=== PATIENT | male | born 1940 | race Caucasian/White ===

== ENCOUNTER → 2018-01-29 07:39 | Outpatient (CLI) | payer MEDICARE, BC, SELFPAY ==
[2018-01-29 08:21] LABS: Add Manual Diff / Slide Review NO; Basophils Percent Auto 0.9 % (0-2); Eosinophils Percent Auto 1.2 % (2-4); Hematocrit 47.6 % (41-53); Hemoglobin 15.9 g/dL (13.5-17.5); Lymphocytes Percent Auto 16.5 % (25-40); Mean Corpuscular HGB Conc 33.4 % (30-36); Mean Corpuscular Hemoglobin 32.2 PG (26-34); Mean Corpuscular Volume 96.4 fL (80-100); Monocytes Percent Auto 10.9 % (3-14); Neutrophils Absolute Auto 4000 /uL (3000-5900); Neutrophils Percent Auto 70.5 % (50-75); Platelet Count 231 X10^3/uL (150-400); Red Blood Cell Count 4.94 X10^6/uL (4.5-5.9); Red Cell Distribution Width 12.8 % (11.6-14.8); White Blood Cell Count 5.6 X10^3/uL (4.5-11.0)
[2018-01-29 08:48] LABS: Alanine Aminotransferase 32 IU/L (21-72); Albumin 4.2 g/dL (3.5-5.0); Albumin Globulin Ratio 1.5 (1.0-2.8); Alkaline Phosphatase 59 U/L (38-126); Aspartate Aminotransferase 25 IU/L (17-59); Bilirubin Total 0.5 mg/dL (0.2-1.3); Blood Urea Nitrogen 27 mg/dL (9-20); Calcium 9.5 mg/dL (8.4-10.2); Carbon Dioxide 27 mmol/L (22-32); Chloride 104 mmol/L (98-107); Cholesterol 210 mg/dL (140-199); Estimated Glomerular Filt Rate > 60.0 mL/min (>60); Globulin 2.8 g/dL (1.7-4.1); Glucose 94 mg/dL (80-110); HDL Cholesterol 60 mg/dL (40-60); HEMOLYSIS < 15 (0-50); LDL Cholesterol Calculated 135 mg/dL (<100); Potassium 4.5 mmol/L (3.4-5.1); Sodium 143 mmol/L (137-145); Triglycerides 74 mg/dL (35-150)
== END ==
PROVIDERS: Visit Provider Internal Medicine
DX: I10 Essential (primary) hypertension (principal); M15.0 Primary generalized (osteo)arthritis
CPT/HCPCS: 36415; 80053; 80061; 84153; 85025

== ENCOUNTER → 2018-02-19 09:44 | Outpatient (CLI) | payer MEDICARE, BC, SELFPAY ==
--- NOTE | 2018-02-19 | DI.US.S_ITS ---
PROCEDURE: US ABD AORTA ANEURYSM SCREEN INDICATIONS: SCREENING TECHNIQUE: Real time scanning was performed of the aorta and iliac arteries, with image documentation. COMPARISON: None. FINDINGS: Aorta: Proximal aortic not well-seen. Mid-aorta measures 1.7 cm. Distal aortic diameter is 1.7 cm. Iliac arteries: Right common iliac artery measures 1.2 cm. Left common iliac artery measures 1.4 cm. IMPRESSION: Proximal aorta not well-seen otherwise no aortic aneurysm. Dictated by: Wade Larry [facility] Interpreted: Bruna García MD on 02/19/2018 at 10:55 Approved by: Bruna García MD, PhD on 02/19/2018 at 10:59
== END ==
PROVIDERS: PCP Internal Medicine; Visit Provider Internal Medicine
DX: Z13.6 Encounter for screening for cardiovascular disorders (principal)
CPT/HCPCS: 76706

== ENCOUNTER → 2018-03-25 08:00 | Outpatient (CLI) | payer MEDICARE, BC, SELFPAY ==
[2018-03-25 09:28] LABS: Alanine Aminotransferase 39 IU/L (21-72); Aspartate Aminotransferase 26 IU/L (17-59); Cholesterol 161 mg/dL (140-199); HDL Cholesterol 58 mg/dL (40-60); LDL Cholesterol Calculated 89 mg/dL (<100); Triglycerides 68 mg/dL (35-150)
== END ==
PROVIDERS: PCP Internal Medicine; Visit Provider Internal Medicine
DX: E78.00 Pure hypercholesterolemia, unspecified (principal)
CPT/HCPCS: 36415; 80061; 84450; 84460

== ENCOUNTER → 2019-04-02 07:48 | Outpatient (CLI) | payer MEDICARE, OTHER, SELFPAY ==
[2019-04-02 08:46] LABS: Alanine Aminotransferase 27 IU/L (<50); Albumin 4.4 g/dL (3.5-5.0); Albumin Globulin Ratio 1.4 (1.0-2.8); Alkaline Phosphatase 70 U/L (38-126); Aspartate Aminotransferase 29 IU/L (17-59); BUN Creatinine Ratio 24.4 (6-22); Bilirubin Total 0.8 mg/dL (0.2-1.3); Blood Urea Nitrogen 22 mg/dL (9-20); Calcium 9.2 mg/dL (8.4-10.2); Carbon Dioxide 28 mmol/L (22-32); Chloride 101 mmol/L (98-107); Cholesterol 157 mg/dL (140-199); Estimated Glomerular Filt Rate > 60.0 mL/min (>60); Globulin 3.1 g/dL (1.7-4.1); Glucose 105 mg/dL (80-110); HDL Cholesterol 43 mg/dL (40-60); HEMOLYSIS < 15 (0-50); LDL Cholesterol Calculated 98 mg/dL (<100); Potassium 3.9 mmol/L (3.4-5.1); Sodium 138 mmol/L (137-145); Total Protein 7.5 g/dL (6.3-8.2); Triglycerides 78 mg/dL (35-150)
== END ==
PROVIDERS: PCP Internal Medicine; Visit Provider Internal Medicine
DX: I10 Essential (primary) hypertension (principal); M15.0 Primary generalized (osteo)arthritis; E78.00 Pure hypercholesterolemia, unspecified
CPT/HCPCS: 36415; 80053; 80061

== ENCOUNTER 2019-04-28 08:37 | Day surgery (SDC) | payer MEDICARE, OTHER, SELFPAY ==
--- NOTE | 2019-04-28 | PATH_ITS ---
[facility] Accession Number: [id number] . 01 Material submitted: . PART A: colon - ASCENDING COLON BIOPSY PART B: hepatic flexure - HEPATIC FLEXURE BIOPSY PART C: rectum - RECTAL POLYPS . 01 Clinical history: . 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 02 Diagnosis: A. Ascending Colon, Biopsy: Consistent with submucosal lipoma. Negative for serrated lesion, dysplasia or malignancy. . B. Hepatic Flexure, Biopsy: Tubular adenoma. . C. Rectal Polyps, Biopsies: Fragments of hyperplastic polyp. [id number] 04/29/2019 0915 Local . 02 Electronically signed: . Corby Fox MD, PhD, Pathologist NPI- [id number] . 01 Gross description: . Part A: ASCENDING COLON BIOPSY: Received in formalin are 2 fragment(s) of huggins, soft tissue measuring 0.1 x 0.1 x 0.1 cm to 0.3 x 0.2 x 0.2 cm submitted entirely in 1 cassette(s) Part B: HEPATIC FLEXURE BIOPSY: Received in formalin are 2 fragment(s) of huggins, soft tissue measuring 0.1 x 0.1 x 0.1 cm to 0.2 x 0.2 x 0.2 cm submitted entirely in 1 cassette(s) Part C: RECTAL POLYPS: Received in formalin are 3 fragment(s) of huggins, soft tissue measuring 0.1 x 0.1 x 0.1 cm to 0.4 x 0.3 x 0.2 cm submitted entirely in 1 cassette(s) /[facility] [place] 1827 Local . 02 Pathologist provided ICD-10: D12.2, D12.3, K62.1 . 02 CPT . 799862, 408777, 250608 Performed at: 01 [facility] [address] [place] [address], [place], [place] [id number] MD Jean-Pierre Green MD Phone: [phone] Performed at: [address] [facility] [address] [place], [place] [id number] MD Dayna Rey MD Phone: [phone]
[2019-04-28] MEDS: SODIUM CHLORIDE 0.9% 1,000 ML 200 ML IV (08:50)
[2019-04-28 09:00] VITALS: BP 146/85; PULSE 90; RESP 20; TEMP 36.2; O2SAT 95; BMI 29.0
--- NOTE | 2019-04-28 10:01 | PM.HP.1 ---
History of Present Illness History of Present Illness Date Patient Seen: 04/28/19 Time Patient Seen: 10:01 Chief complaint: [id number] Narrative: The patient is a gentleman here for a colonoscopy. He has a history of polyps. No family history of colon cancer. Last exam was 5 years ago. Patient History Medical History (Updated 04/28/19 @ 10:02 by Chun Rivera MD) Hypertension (Acute) Surgical History (Updated 04/28/19 @ 10:03 by Chun Rivera MD) History of back surgery (Acute) Status post appendectomy (Acute) Family & Social History Social History: household members spouse Tobacco & Substance use: Smoking Status Former smoker alcohol intake frequency a few times a week Substance Use Type does not use Meds Home Medications and Allergies Home Medications Medication Instructions Recorded Confirmed Type atorvastatin 10 mg PO BEDTIME 04/28/19 04/28/19 History benazepril 20 mg PO DAILY 04/28/19 04/28/19 History hydrochlorothiazide 25 mg PO DAILY 04/28/19 04/28/19 History Allergies Allergy/AdvReac Type Severity Reaction Status Date / Time Penicillins Allergy Rash Verified 04/28/19 08:50 Review of Systems Review of Systems Narrative: No heart or breathing issues no black or bloody bowel movements Exam Vital Signs (past 8 hours): - 04/28/19 09:00 Temperature 97.2 F L Pulse Rate 90 Respiratory Rate 20 Blood Pressure 146/85 H Pulse Oximetry 95 Oxygen Delivery Method Room Air Narrative Exam Narrative: Pleasant cooperative patient no apparent distress. Lungs are clear to auscultation. No rales or rhonchi. Heart regular rate and rhythm no murmur gallop. Abdomen is soft nontender without mass. No obvious hernias. Patient is alert and oriented x3. Assessment & Plan Assessment & Plan narrative: The patient for a screening colonoscopy. I have discussed the procedure with them. Risks of bleeding, perforation which would necessitate major operation, failure to find remove all lesions, the potential tattoo were all discussed. All questions were answered. They wished to proceed.
--- NOTE | 2019-04-28 10:04 | PM.PREOP ---
Pre-operative Note Interval Note History & Physical reviewed/Exam performed by Physician: Yes Changes to H&P: No ASA Class (for procedural sedation): II
--- NOTE | 2019-04-28 10:38 | PM.OP.ENDO ---
Operative Date/Time/Diagnoses Date of procedure: 04/28/19 Time of procedure: 10:38 Pre-op diagnosis: Personal history of polyps. Last exam 5 years ago. Post-op diagnosis: same (Polyps. Scattered diverticuli. Probable lipoma of the ascending colon.) Procedure & Clinicians Study performed: Colonoscopy with cold biopsy Same procedure as scheduled: Yes Indications: Screening Surgeon: Chun Rivera Procedure Notes SCOAP/Timeout: Perform Procedure in detail: The patient was placed in the left lateral decubitus position and underwent IV sedation directed by the surgeon consisting of fentanyl and Versed. Digital exam was unremarkable. Prostate was small.. The scope was inserted and advanced through the rectum into the sigmoid, descending, transverse, and ascending colon. Diverticuli were noted scattered in the colon. The cecum was reached identified by the ileocecal valve . The scope was gradually brought out. Small Polyps were found at[the hepatic flexure in in the rectum. There was also a polypoid lesion in the ascending colon that had the appearance of a lipoma. I biopsied the surface which exposed the deeper tissue which looked fatty. This was biopsied also. The whole lesion was not removed due to the clinical appearance, that is, it appeared to be a benign lipoma]. The scope ultimately was retroflexed in the rectum. The appearance was normal except for 2 small lesions which were biopsied and removed.. The scope was removed and the patient tolerated the procedure well. The prep was very good. Scope withdrawal time: 10.5 minutes total Sedation minutes: 22 Findings: diverticulosis and polyp Specimen(s): other (Polyps) Complications: none Post-procedure Recommendations: Colonscopy in 5 years Follow up: as needed Disposition: PACU
[2019-04-28 10:41] VITALS: BP 111/80; PULSE 72; RESP 16; TEMP 36.9
[2019-04-28] MEDS: fentaNYL 250 MCG/5 ML INJ IV (10:42)
[2019-04-28] MEDS: MIDAZOLAM 5 MG/ML VIAL IV (10:42)
[2019-04-28] MEDS: MIDAZOLAM 2 MG/2 ML VIAL IV (10:43)
--- NOTE | 2019-04-28 10:44 | SUR.PHASEI ---
hearing aides and glasses returned and wearing both in recovery.
[2019-04-28 10:47] VITALS: BP 114/82; PULSE 77; RESP 11; O2SAT 94
[2019-04-28 10:52] VITALS: BP 115/76; PULSE 70; RESP 18; O2SAT 96
[2019-04-28 11:13] VITALS: BP 114/74; PULSE 63; RESP 16; TEMP 36.6; O2SAT 95
== END 2019-04-28 11:25 | disposition home or self-care (01) ==
PROVIDERS: PCP Internal Medicine; Referring Provider Internal Medicine; Visit Provider Specialist
PROC: 0DJD8ZZ Inspection of Lower Intestinal Tract, Via Natural or Artificial Opening Endoscopic (ICD-10-PCS; CPT 45378; principal; 2019-04-28 09:45)
DX: Z12.11 Encounter for screening for malignant neoplasm of colon (principal); Z86.010 Personal history of colon polyps; K57.30 Diverticulosis of large intestine without perforation or abscess without bleeding; K62.1 Rectal polyp; D12.3 Benign neoplasm of transverse colon
CPT/HCPCS: 45380; 99152; J2250; J3010

== ENCOUNTER → 2019-05-06 18:16 | Outpatient (ROUT) | payer MEDICARE, OTHER, SELFPAY ==
[2019-05-06 18:20] LABS: Bacteria Urine None Seen
[2019-05-06 18:45] LABS: Add Manual Diff / Slide Review NO; Basophils Absolute Auto 0 /uL (0-100); Basophils Percent Auto 0.3 % (0-2); Eosinophils Absolute Auto 0 /uL (0-450); Eosinophils Percent Auto 0.1 % (2-4); Hematocrit 41.4 % (41-53); Hemoglobin 14.2 g/dL (13.5-17.5); Lymphocytes Absolute Auto 300 /uL (1100-4500); Mean Corpuscular HGB Conc 34.2 % (30-36); Mean Corpuscular Hemoglobin 32.6 PG (26-34); Mean Corpuscular Volume 95.2 fL (80-100); Monocytes Absolute Auto 2100 /uL (0-900); Monocytes Percent Auto 13.1 % (3-14); Neutrophils Absolute Auto 13300 /uL (1500-7000); Neutrophils Percent Auto 84.5 % (50-75); Platelet Count 247 X10^3/uL (150-400); Red Blood Cell Count 4.35 X10^6/uL (4.5-5.9); White Blood Cell Count 15.7 X10^3/uL (4.5-11.0)
[2019-05-06 18:50] LABS: Appearance Urine UA SL CLOUDY; Bilirubin Urine UA 1+ (NEGATIVE); Color Urine UA ORANGE; Glucose Urine UA NEGATIVE (Negative); Ketones Urine UA 1+ (NEGATIVE); Leukocyte Esterase Urine UA NEGATIVE (NEGATIVE); Nitrite Urine UA NEGATIVE (Negative); Occult Blood Urine UA 2+ (Negative); Protein Urine UA 2+ (Negative); Urobilinogen Urine UA 0.2 E.U./dL (0.2)
[2019-05-06 18:52] LABS: Ictotest Urine Negative (Negative)
[2019-05-06 18:53] LABS: BUN Creatinine Ratio 24.3 (6-22); Blood Urea Nitrogen 34 mg/dL (9-20); Calcium 8.6 mg/dL (8.4-10.2); Carbon Dioxide 22 mmol/L (22-32); Chloride 99 mmol/L (98-107); Estimated Glomerular Filt Rate 49.3 mL/min (>60); Glucose 137 mg/dL (80-110); HEMOLYSIS < 15 (0-50); Potassium 3.7 mmol/L (3.4-5.1); Sodium 135 mmol/L (137-145)
[2019-05-06 18:57] LABS: Culture Indicated Urine Cult Not Indicated; Hyaline Casts Urine 1-5/LPF; Mucus Urine 3+ (Negative); RBC Urine 1-5/HPF (0-5/HPF); Squamous Epithelial Cell Urine 1-5 /HPF (0-5/HPF); WBC Urine 0-1/HPF (0-5/HPF)
== END ==
PROVIDERS: PCP Internal Medicine; Visit Provider Internal Medicine
DX: R50.9 Fever, unspecified (principal)
CPT/HCPCS: 80048; 81001; 85025

== ENCOUNTER → 2019-05-07 10:27 | Outpatient (CLI) | payer MEDICARE, OTHER, SELFPAY ==
--- NOTE | 2019-05-07 10:50 | DI.RAD.S_ITS ---
PROCEDURE: XR CHEST 2V INDICATIONS: UNDEFINED ILLNESS TECHNIQUE: 2 views of the chest were acquired. COMPARISON: None. FINDINGS: Surgical changes and devices: None. Lungs and pleura: Low lung volumes with scattered subsegmental atelectasis/scarring. No pleural effusions or pneumothorax. Mediastinum: Mediastinal contours are normal. Heart size is normal. Bones and chest wall: No suspicious bony abnormalities. Soft tissues appear unremarkable. IMPRESSION: Low lung volumes with scattered subsegmental atelectasis/scarring. Dictated by: Kahlil Moreno M.D. on 05/07/2019 at 14:22 Approved by: Kahlil Moreno M.D. on 05/07/2019 at 14:23
[2019-05-07 12:35] LABS: Alanine Aminotransferase 56 IU/L (<50); Albumin 3.4 g/dL (3.5-5.0); Albumin Globulin Ratio 1.1 (1.0-2.8); Alkaline Phosphatase 181 U/L (38-126); Aspartate Aminotransferase 49 IU/L (17-59); Bilirubin Total 0.6 mg/dL (0.2-1.3); Blood Urea Nitrogen 36 mg/dL (9-20); Calcium 8.7 mg/dL (8.4-10.2); Carbon Dioxide 25 mmol/L (22-32); Chloride 98 mmol/L (98-107); Estimated Glomerular Filt Rate 45.5 mL/min (>60); Globulin 3.2 g/dL (1.7-4.1); Glucose 105 mg/dL (80-110); HEMOLYSIS < 15 (0-50); Potassium 3.7 mmol/L (3.4-5.1); Sodium 137 mmol/L (137-145); Total Protein 6.6 g/dL (6.3-8.2)
== END ==
PROVIDERS: PCP Internal Medicine; Referring Provider Internal Medicine; Visit Provider Internal Medicine
DX: R50.9 Fever, unspecified (principal); N17.9 Acute kidney failure, unspecified
CPT/HCPCS: 36415; 71046; 80053; 87040

== ENCOUNTER → 2019-05-15 07:49 | Outpatient (CLI) | payer MEDICARE, OTHER, SELFPAY ==
[2019-05-15 08:49] LABS: Alanine Aminotransferase 41 IU/L (<50); Albumin 3.7 g/dL (3.5-5.0); Albumin Globulin Ratio 1.1 (1.0-2.8); Alkaline Phosphatase 132 U/L (38-126); Aspartate Aminotransferase 30 IU/L (17-59); Bilirubin Total 0.5 mg/dL (0.2-1.3); Bilirubin Unconjugated 0.3 mg/dL (0.0-1.1); Globulin 3.5 g/dL (1.7-4.1); Total Protein 7.2 g/dL (6.3-8.2)
[2019-05-15 08:52] LABS: HEMOLYSIS 52 (0-50)
== END ==
PROVIDERS: PCP Internal Medicine; Referring Provider Internal Medicine; Visit Provider Internal Medicine
DX: R74.8 Abnormal levels of other serum enzymes (principal)
CPT/HCPCS: 36415; 80076

== ENCOUNTER 2019-05-22 14:04 | Emergency (ER) | payer MEDICARE, OTHER, SELFPAY ==
[2019-05-22] VITALS (11 sets, daily range): BP systolic 90–127; BP diastolic 57–78; PULSE 87–116; RESP 15–26; TEMP 37.9–38.1; O2SAT 88–98
--- NOTE | 2019-05-22 14:20 | DI.RAD.S_ITS ---
PROCEDURE: XR CHEST 1V INDICATIONS: suspected sepsis TECHNIQUE: One view of the chest was acquired. COMPARISON: [facility], CR, XR CHEST 2V, 05/07/2019, 11:02. FINDINGS: Surgical changes and devices: None. Lungs and pleura: Lungs appear clear. No pleural effusions or pneumothorax. Mediastinum: Mediastinal contours appear normal. Heart size is normal. Bones and chest wall: No suspicious bony lesions. Overlying soft tissues appear unremarkable. IMPRESSION: No acute cardiopulmonary abnormality. Dictated by: Tyler Tinsley M.D. on 05/22/2019 at 14:41 Approved by: Tyler Tinsley M.D. on 05/22/2019 at 14:42
[2019-05-22] MEDS: ACETAMINOPHEN 325 MG TABLET 650 MG PO ×2 (14:59→21:29)
[2019-05-22] MEDS: ONDANSETRON 4 MG/2 ML INJ IV (14:59)
[2019-05-22] MEDS: SODIUM CHLORIDE 0.9% 1,000 ML 1000 ML IV (15:00)
[2019-05-22 15:09] LABS: Add Manual Diff / Slide Review NO; Basophils Absolute Auto 100 /uL (0-100); Basophils Percent Auto 0.3 % (0-2); Eosinophils Absolute Auto 0 /uL (0-450); Hematocrit 43.2 % (41-53); Hemoglobin 14.6 g/dL (13.5-17.5); INR 1.3 (0.9-1.3); Lymphocytes Absolute Auto 500 /uL (1100-4500); Lymphocytes Percent Auto 3.2 % (25-40); Mean Corpuscular HGB Conc 33.7 % (30-36); Mean Corpuscular Hemoglobin 31.6 PG (26-34); Mean Corpuscular Volume 93.6 fL (80-100); Monocytes Absolute Auto 1100 /uL (0-900); Monocytes Percent Auto 7.4 % (3-14); Neutrophils Absolute Auto 13400 /uL (1500-7000); Neutrophils Percent Auto 89.1 % (50-75); Platelet Count 280 X10^3/uL (150-400); Prothrombin Time 14.6 SECONDS (10.1-12.7); Red Blood Cell Count 4.62 X10^6/uL (4.5-5.9); Red Cell Distribution Width 12.8 % (11.6-14.8)
[2019-05-22 15:11] LABS: PTT Partial Thromboplastin Tim 30 SECONDS (26.4-36.2)
[2019-05-22 15:13] LABS: Alanine Aminotransferase 365 IU/L (<50); Albumin 4.1 g/dL (3.5-5.0); Albumin Globulin Ratio 1.1 (1.0-2.8); Alkaline Phosphatase 322 U/L (38-126); Aspartate Aminotransferase 297 IU/L (17-59); BUN Creatinine Ratio 18.4 (6-22); Bilirubin Total 6.6 mg/dL (0.2-1.3); Blood Urea Nitrogen 21 mg/dL (9-20); Calcium 9.7 mg/dL (8.4-10.2); Carbon Dioxide 21 mmol/L (22-32); Chloride 100 mmol/L (98-107); Estimated Glomerular Filt Rate > 60.0 mL/min (>60); Globulin 3.9 g/dL (1.7-4.1); Glucose 133 mg/dL (80-110); HEMOLYSIS < 15 (0-50); Lipase 80 U/L (23-300); Potassium 4.2 mmol/L (3.4-5.1); Sodium 132 mmol/L (137-145)
[2019-05-22 15:13] LABS: Influenza A - CEPHEID Flu A NEGATIVE (NEGATIVE); Influenza B - CEPHEID Flu B NEGATIVE (NEGATIVE)
[2019-05-22 15:15] LABS: Lactate (Lactic Acid) 1.4 mmol/L (0.7-2.1)
[2019-05-22 15:29] LABS: Procalcitonin 0.66 ng/mL (<0.5)
[2019-05-22 15:29] LABS: Creatine Kinase 46 U/L (55-170)
[2019-05-22 15:45] LABS: Bacteria Urine None Seen; RBC Urine None Seen (0-5/HPF); WBC Urine None Seen (0-5/HPF)
[2019-05-22 15:46] LABS: Appearance Urine UA CLEAR; Glucose Urine UA NEGATIVE (Negative); Ketones Urine UA TRACE (NEGATIVE); Leukocyte Esterase Urine UA NEGATIVE (NEGATIVE); Nitrite Urine UA NEGATIVE (Negative); Occult Blood Urine UA TRACE-LYSED (Negative); Specific Gravity Urine UA 1.015 (1.000-1.035); pH Urine UA 7.5 (4.5-8.0)
[2019-05-22 15:51] LABS: Color Urine UA Orange
[2019-05-22 15:53] LABS: Culture Indicated Urine Cult Not Indicated; Mucus Urine 1+ (Negative); Squamous Epithelial Cell Urine 5-10 /HPF (0-5/HPF)
[2019-05-22] MEDS: VANCOMYCIN 1,000 MG/200 ML PIGGYBACK 200 MG IV (16:02)
[2019-05-22] MEDS: levoFLOXacin 750 MG/150 ML PIGGYBACK 100 MG IV (16:02)
--- NOTE | 2019-05-22 16:15 | DI.CT.S_ITS ---
PROCEDURE: CT ABDOMEN PELVIS W CON INDICATIONS: Fever, sepsis, after colonoscopy, abnormal Liver functions TECHNIQUE: After the administration of intravenous contrast, 5 mm thick sections acquired from the diaphragm to the symphysis. 5 mm coronal and sagittal reformats were acquired. For radiation dose reduction, the following was used: automated exposure control, adjustment of mA and/or kV according to patient size. COMPARISON: None. FINDINGS: Image quality: Excellent. ABDOMEN: Lung bases: Lung bases are clear. Heart size is normal. Solid organs: There are multiple prominent liver cysts. No suspicious solid lesions. Liver is normal in size and enhancement. Gallbladder is markedly abnormal in appearance. It is quite dilated, with gallbladder wall thickening, and inflammatory change around the gallbladder. Gallstones are present. Findings may potentially represent acute cholecystitis. However, gallbladder carcinoma is not excluded. Cannot exclude extension into the surrounding hepatic parenchyma and surrounding fat. Biliary system is non dilated. Pancreas enhances normally. Spleen is normal in size and enhancement. Probable small left adrenal adenoma. Kidneys demonstrate normal size and enhancement, without hydronephrosis. Peritoneum and bowel: Bowel loops demonstrate normal wall thickness and caliber. No free fluid or air. Nodes and vessels: No retroperitoneal or mesenteric adenopathy by size criteria. Aorta and inferior vena cava are normal in size. Miscellaneous: No ventral hernias. PELVIS: Genitourinary: Bladder wall thickness is normal. Miscellaneous: Right inguinal hernia containing fat. No inguinal adenopathy. Bones: No suspicious bony lesions. No vertebral body compression fractures. IMPRESSION: Markedly abnormal appearance of gallbladder, possibly representing acute cholecystitis. However, cannot exclude a gallbladder carcinoma with possible infiltration into the surrounding liver and surrounding fat. Dictated by: Dixon Mccollum M.D. on 05/22/2019 at 17:01 Approved by: Dixon Mccollum M.D. on 05/22/2019 at 17:06
--- NOTE | 2019-05-22 18:20 | ED.SEPSIS ---
HPI - Sepsis General Chief Complaint: Fever Mode of arrival: Ambulatory Source: patient Limitations: no limitations Evaluation Sepsis Screen: Possible Sepsis Risk Sepsis Infection Criteria Present: Documented Infection Narrative: The patient is a 78-year-old male who presents to the emergency department with a fever and cough. He however states that on April 28 he had a colonoscopy and polyp removed. The question is is whether not he had a perforation. No CT scan at that time was performed. He did fine for 2 days but then afterwards he has had a fever since then. He has also developed excessive fatigue weakness no energy and has been excessively sleepy. He has had cold sweats and intermittent shaking rigors. They look for a kidney infection but did not reveal any and he was not treated. He denies a history of being immunosuppressed for any reason. He has had no cancer lymphoma or leukemia. He denies a history of hepatitis, tuberculosis, or HIV. He denies being a diabetic having a previous heart CO, history of COPD or asthma. He does admit to a history of hypertension. He denies smoking cigarettes but does drink alcohol. He does not use any drugs. He has had fever chills and sweats as previously described. He denies any headache fall or injury. He has had no sinus congestion nasal drainage or sore throat. He has had a cough that has been nonproductive of any significant sputum associated with shortness of breath. He has been excessively diaphoretic at times. He denies any chest pain palpitations dizziness or passing out. He has had no significant abdominal pain but has had nausea with intermittent vomiting. He denies any diarrhea melena hematochezia. He has had no urinary symptoms. Review of Systems Review of Systems Narrative: All review of systems were negative except for those mentioned in the history of present illness. Patient History Medical History Hypertension (Acute) Surgical History History of back surgery (Acute) Status post appendectomy (Acute) Social History household members: spouse Smoking Status: Former smoker Smoking Status: Former smoker alcohol intake frequency: a few times a week Substance Use Type: does not use Exam Narrative Exam Narrative: PHYSICAL EXAM: CONSTITUTIONAL: Awake, Alert, Oriented, Coherent, Cooperative in NAD. He has been very pleasant. Does not appear toxic or ill. His skin has yellow-brown bronze appearance. His sclera appear icteric. HEAD: AT/NC EENT: PERRL, FROM of eyes, no discharge. No epistaxis or nasal drainage Oral mucosa is moist and pink, posterior pharynx is without erythema or exudate. NECK: Supple, no obvious JVD, Trachea is midline without stridor, no palpable LN or masses. SPINE: No gross deformity, no palpable tenderness of the cervical, thoracic, lumbar or sacral spine. No CVA tenderness. THORAX: No deformity, retractions, chest wall tenderness. LUNGS: Clear with symmetrical breath sounds without respiratory distress HEART: Normal heart tones, regular rhythm cardiac without murmur. ABDOMEN: Soft, essentially nontender without any guarding rebound or rigidity. There was no palpable organomegaly or splenomegaly noted. EXTREMITIES: No edema, cyanosis, deformity or tenderness. SKIN: No rash, bruising, petechiae or purpura. NEURO: Awake, alert, oriented, conversive, cranial nerves II-XII are symmetrical and normal, moves all 4 extremities and is ambulatory Initial Vital Signs Initial Vital Signs: Vital Signs Temperature 100.5 F H 05/22/19 14:15 Pulse Rate 116 H 05/22/19 14:15 Respiratory Rate 24 05/22/19 14:15 Blood Pressure 116/78 05/22/19 14:15 Pulse Oximetry 95 05/22/19 14:15 Course Course Course Narrative: 182 the patient's gallbladder is markedly abnormal in appearance. There is gallbladder wall thickening and inflammatory changes around the gallbladder. Gallstones are present. This represents acute cholecystitis. Gallbladder carcinoma is not excluded. Biliary system is not dilated. The patient's primary care physician is Dr. Bansal. The hospitalist cover an admit for Dr. Bansal. Dr. Reed has been paged to admit this patient. 183: I discussed the patient with Dr. jasmine ahn and he wanted me to consult and discussed the patient with General surgery. 184: I discussed the patient with Dr. almas wayne who states that he feels that the patient has ascending cholangitis with jaundice. The patient's bilirubin is 6.6 AST is 297 ALT is 365 alk-phos is 322. General surgery in the staff here has no ability to take care the patient with ascending cholangitis. The if the patient has a gallbladder tumor his bile duct will need to be stented and the patient needs an ERCP. The patient will need to be transferred. Report will be given to Dr. Faye. Orders Ordered: ED Orders 05/22/19 14:20 XR chest 1V Stat EKG-12 Lead Stat RT Consult Eval and Treat Now 05/22/19 14:21 Flu test [Influenza A & B (PCR)] Stat 05/22/19 14:53 Complete Blood Count AUTO DIFF Stat Comprehensive Metabolic Panel Stat Lactate (Lactic Acid) Stat Lipase Stat Partial Thromboplastin Time Stat Procalcitonin Stat Prothrombin Time INR Stat 05/22/19 14:57 CKMB Panel (CK + CKMB) Stat 05/22/19 15:07 Ictotest Urine Stat Urinalysis and Microscopic Stat 05/22/19 15:15 Blood Culture Stat 05/22/19 16:15 CT abdomen pelvis w con Stat Discontinued Medications Acetaminophen (Tylenol) 650 mg PO NOW ONE Stop: 05/22/19 14:31 Last Admin: 05/22/19 14:59 Dose: 650 mg Documented by: MERCEDES Diltiazem HCl (Cardizem Cd) 120 mg PO NOW ONE Stop: 05/22/19 18:29 Sodium Chloride (Normal Saline 0.9%) 1,000 mls @ 1,000 mls/hr IV BOLUS ONE Stop: 05/22/19 15:19 Last Infusion: 05/22/19 16:23 Dose: 0 mls/hr Documented by: Admin: 05/22/19 15:00 Dose: 1,000 mls/hr Documented by: MERCEDES Vancomycin HCl (Vancomycin) 1,000 mg in 200 mls @ 200 mls/hr IV NOW ONE Stop: 05/22/19 16:37 Last Admin: 05/22/19 16:02 Dose: 200 mls/hr Documented by: ERIC Levofloxacin (Levaquin) 750 mg in 150 mls @ 100 mls/hr IV NOW ONE Stop: 05/22/19 17:13 Last Infusion: 05/22/19 18:00 Dose: 0 mls/hr Documented by: Admin: 05/22/19 16:02 Dose: 100 mls/hr Documented by: ERIC Ondansetron HCl (Zofran) 4 mg IV NOW ONE Stop: 05/22/19 14:21 Last Admin: 05/22/19 14:59 Dose: 4 mg Documented by: MERCEDES Vital Signs Vital signs: Vital Signs - 8 hr 05/22/19 14:15 05/22/19 14:59 05/22/19 17:10 Temperature 100.5 F H 100.5 F H Pulse Rate 116 H 100 H Respiratory Rate 24 Blood Pressure 116/78 Blood Pressure [Right Arm] 112/59 L Pulse Oximetry 95 94 05/22/19 18:00 05/22/19 18:44 Temperature Pulse Rate 92 H 92 H Respiratory Rate 17 16 Blood Pressure Blood Pressure [Right Arm] 107/64 114/65 Pulse Oximetry 94 92 MDM - Sepsis Medical Records Attestation: I reviewed the patient's medical records. Lab Data Attestation: I reviewed the patient's lab results. Result diagrams: 05/22/19 14:53 05/22/19 14:53 Labs: Lab Results 05/22/19 05/22/19 05/22/19 Range/Units 14:21 14:53 14:53 WBC 15.0 H (4.5-11.0) X10^3/uL RBC 4.62 (4.5-5.9) X10^6/uL Hgb 14.6 (13.5-17.5) g/dL Hct 43.2 (41-53) % MCV 93.6 (80-100) fL MCH 31.6 (26-34) PG MCHC 33.7 (30-36) % RDW 12.8 (11.6-14.8) % Plt Count 280 (150-400) X10^3/uL Neut % (Auto) 89.1 H (50-75) % Lymph % (Auto) 3.2 L (25-40) % [place] % (Auto) 7.4 (3-14) % Eos % (Auto) 0.0 L (2-4) % Baso % (Auto) 0.3 (0-2) % Neut # (Auto) 30108 H (9616-1372) /uL Lymph # (Auto) 500 L (2239-8343) /uL [place] # (Auto) 1100 H (0-900) /uL Eos # (Auto) 0 (0-450) /uL Baso # (Auto) 100 (0-100) /uL PT 14.6 H (10.1-12.7) SECONDS INR 1.3 (0.9-1.3) APTT 30 (26.4-36.2) SECONDS Sodium (137-145) mmol/L Potassium (3.4-5.1) mmol/L Chloride (98-107) mmol/L Carbon Dioxide (22-32) mmol/L BUN (9-20) mg/dL Creatinine (0.66-1.25) mg/dL Estimated GFR (>60) mL/min BUN/Creatinine Ratio (6-22) Glucose (80-110) mg/dL Lactate (0.7-2.1) mmol/L Calcium (8.4-10.2) mg/dL Total Bilirubin (0.2-1.3) mg/dL AST (17-59) IU/L ALT (<50) IU/L Alkaline Phosphatase (38-126) U/L Total Creatine Kinase (55-170) U/L CK-MB (CK-2) CK-MB (CK-2) Rel Index Total Protein (6.3-8.2) g/dL Albumin (3.5-5.0) g/dL Globulin (1.7-4.1) g/dL Albumin/Globulin Ratio (1.0-2.8) Lipase (23-300) U/L Procalcitonin (<0.5) ng/mL Urine Color Urine Appearance Urine pH (4.5-8.0) Ur Specific [place] (1.000-1.035) Urine Protein Urine Glucose (UA) (Negative) g/dL Urine Ketones (NEGATIVE) Urine Occult Blood (Negative) Urine Nitrate (Negative) Urine Bilirubin Ur Bilirubin Confirm Urine Urobilinogen (0.2) E.U./dL Ur Leukocyte Esterase (NEGATIVE) Urine RBC (0-5/HPF) Urine WBC (0-5/HPF) Ur Squamous Epith Cells (0-5/HPF) Urine Bacteria (None) Urine Mucus (Negative) Ur Culture Indicated? Influenza A (RT-PCR) Flu a negative (NEGATIVE) Influenza B (RT-PCR) Flu b negative (NEGATIVE) 05/22/19 05/22/19 05/22/19 Range/Units 14:53 14:53 14:53 WBC (4.5-11.0) X10^3/uL RBC (4.5-5.9) X10^6/uL Hgb (13.5-17.5) g/dL Hct (41-53) % MCV (80-100) fL MCH (26-34) PG MCHC (30-36) % RDW (11.6-14.8) % Plt Count (150-400) X10^3/uL Neut % (Auto) (50-75) % Lymph % (Auto) (25-40) % [place] % (Auto) (3-14) % Eos % (Auto) (2-4) % Baso % (Auto) (0-2) % Neut # (Auto) (3524-8237) /uL Lymph # (Auto) (4063-4521) /uL [place] # (Auto) (0-900) /uL Eos # (Auto) (0-450) /uL Baso # (Auto) (0-100) /uL PT (10.1-12.7) SECONDS INR (0.9-1.3) APTT (26.4-36.2) SECONDS Sodium 132 L (137-145) mmol/L Potassium 4.2 (3.4-5.1) mmol/L Chloride 100 (98-107) mmol/L Carbon Dioxide 21 L (22-32) mmol/L BUN 21 H (9-20) mg/dL Creatinine 1.14 (0.66-1.25) mg/dL Estimated GFR > 60.0 (>60) mL/min BUN/Creatinine Ratio 18.4 (6-22) Glucose 133 H (80-110) mg/dL Lactate 1.4 (0.7-2.1) mmol/L Calcium 9.7 (8.4-10.2) mg/dL Total Bilirubin 6.6 H (0.2-1.3) mg/dL AST 297 H (17-59) IU/L ALT 365 H (<50) IU/L Alkaline Phosphatase 322 H D (38-126) U/L Total Creatine Kinase (55-170) U/L CK-MB (CK-2) CK-MB (CK-2) Rel Index Total Protein 8.0 (6.3-8.2) g/dL Albumin 4.1 (3.5-5.0) g/dL Globulin 3.9 (1.7-4.1) g/dL Albumin/Globulin Ratio 1.1 (1.0-2.8) Lipase 80 (23-300) U/L Procalcitonin 0.66 H (<0.5) ng/mL Urine Color Urine Appearance Urine pH (4.5-8.0) Ur Specific [place] (1.000-1.035) Urine Protein Urine Glucose (UA) (Negative) g/dL Urine Ketones (NEGATIVE) Urine Occult Blood (Negative) Urine Nitrate (Negative) Urine Bilirubin Ur Bilirubin Confirm Urine Urobilinogen (0.2) E.U./dL Ur Leukocyte Esterase (NEGATIVE) Urine RBC (0-5/HPF) Urine WBC (0-5/HPF) Ur Squamous Epith Cells (0-5/HPF) Urine Bacteria (None) Urine Mucus (Negative) Ur Culture Indicated? Influenza A (RT-PCR) (NEGATIVE) Influenza B (RT-PCR) (NEGATIVE) 05/22/19 05/22/19 Range/Units 14:57 15:07 WBC (4.5-11.0) X10^3/uL RBC (4.5-5.9) X10^6/uL Hgb (13.5-17.5) g/dL Hct (41-53) % MCV (80-100) fL MCH (26-34) PG MCHC (30-36) % RDW (11.6-14.8) % Plt Count (150-400) X10^3/uL Neut % (Auto) (50-75) % Lymph % (Auto) (25-40) % [place] % (Auto) (3-14) % Eos % (Auto) (2-4) % Baso % (Auto) (0-2) % Neut # (Auto) (3168-3188) /uL Lymph # (Auto) (2266-7469) /uL [place] # (Auto) (0-900) /uL Eos # (Auto) (0-450) /uL Baso # (Auto) (0-100) /uL PT (10.1-12.7) SECONDS INR (0.9-1.3) APTT (26.4-36.2) SECONDS Sodium (137-145) mmol/L Potassium (3.4-5.1) mmol/L Chloride (98-107) mmol/L Carbon Dioxide (22-32) mmol/L BUN (9-20) mg/dL Creatinine (0.66-1.25) mg/dL Estimated GFR (>60) mL/min BUN/Creatinine Ratio (6-22) Glucose (80-110) mg/dL Lactate (0.7-2.1) mmol/L Calcium (8.4-10.2) mg/dL Total Bilirubin (0.2-1.3) mg/dL AST (17-59) IU/L ALT (<50) IU/L Alkaline Phosphatase (38-126) U/L Total Creatine Kinase 46 L (55-170) U/L CK-MB (CK-2) TNP CK-MB (CK-2) Rel Index TNP Total Protein (6.3-8.2) g/dL Albumin (3.5-5.0) g/dL Globulin (1.7-4.1) g/dL Albumin/Globulin Ratio (1.0-2.8) Lipase (23-300) U/L Procalcitonin (<0.5) ng/mL Urine Color [place] Urine Appearance Clear Urine pH 7.5 (4.5-8.0) Ur Specific [place] 1.015 (1.000-1.035) Urine Protein TNP Urine Glucose (UA) Negative (Negative) g/dL Urine Ketones Trace H (NEGATIVE) Urine Occult Blood Trace-lysed (Negative) Urine Nitrate Negative (Negative) Urine Bilirubin TNP Ur Bilirubin Confirm TNP Urine Urobilinogen 1.0 (0.2) E.U./dL Ur Leukocyte Esterase Negative (NEGATIVE) Urine RBC None seen (0-5/HPF) Urine WBC None seen (0-5/HPF) Ur Squamous Epith Cells 5-10 /hpf H (0-5/HPF) Urine Bacteria None seen (None) Urine Mucus 1+ H (Negative) Ur Culture Indicated? Cult not indicated Influenza A (RT-PCR) (NEGATIVE) Influenza B (RT-PCR) (NEGATIVE) Urine Dip Bedside Urine Glucose Negative Bedside Urine Bilirubin - Negative Bedside Urine Ketone - Negative Urine Specific [place] 1.005 Bedside Urine Occult Blood +/- Bedside Urine pH 7.5 Bedside Urine Protein - Negative Bedside Urine Urobilinogen - Negative Bedside Urine Nitrite - Negative Bedside Urine Leukocytes - Negative Esterase ECG Data Attestation: I personally reviewed and interpreted this ECG as follows: Interpretation: The patient's EKG obtained on May 21 at 17:4 5:52 a.m. revealed a ventricular rate of 98. Sinus rhythm with occasional premature atrial contractions. The intervals are normal. QTC is slightly prolonged at 467 millisecond. The patient has right axis deviation. The patient has flat T-waves in leads V1 and inverted T-waves in leads III and AVF. There is a flat T-wave in lead II. This is consistent with inferior ischemia of undetermined age. There are no other acute diagnostic ST segment changes. Discharge Plan Departure Patient Disposition: [facility] Clinical Impression: Tachypnea, Tachycardia, Jaundice, Cholangitis Sepsis Qualifiers: Sepsis type: sepsis due to unspecified organism Sepsis acute organ dysfunction status: unspecified Qualified Code(s): A41.9 - Sepsis, unspecified organism Leukocytosis Qualifiers: Leukocytosis type: bandemia Qualified Code(s): D72.825 - Bandemia Fever Qualifiers: Fever type: unspecified Qualified Code(s): R50.9 - Fever, unspecified Gallbladder calculus with acute cholecystitis Qualifiers: Biliary obstruction: without biliary obstruction Qualified Code(s): K80.00 - Calculus of gallbladder with acute cholecystitis without obstruction Prescriptions: No Action atorvastatin 10 mg Tablet 10 mg PO BEDTIME RF: 0 benazepril 20 mg Tablet 20 mg PO DAILY RF: 0 hydrochlorothiazide 25 mg tablet 25 mg PO DAILY RF: 0 Referrals: Ras Bansal MD [Primary Care Provider] -
[2019-05-22] MEDS: metroNIDAZOLE 500 MG/100 ML PIGGYBACK 100 MG IV (20:11)
[2019-05-22] MEDS: SODIUM CHLORIDE 0.9% 1,000 ML 125 ML IV (20:12)
--- NOTE | 2019-05-22 22:23 | PC.NURSE ---
Dr Faye removed pt from Isolation at this time, source of infection found.
== END 2019-05-23 00:30 | disposition short-term general hospital (02) ==
PROVIDERS: Emergency Medicine; Emergency Provider Emergency Medicine; PCP Internal Medicine
DX: R06.82 Tachypnea, not elsewhere classified (principal); R00.0 Tachycardia, unspecified; R17 Unspecified jaundice; K83.09 Other cholangitis; A41.9 Sepsis, unspecified organism; D72.825 Bandemia; R50.9 Fever, unspecified; K80.00 Calculus of gallbladder with acute cholecystitis without obstruction
CPT/HCPCS: 36415; 71045; 74177; 80053; 81001; 81003; 82550; 83605; 83690; 84145; 85025; 85610; 85730; 87040; 87502; 93005; 93010; 96361; 96365; 96367; 96368; 96375; 99285; J1956; J2405; Q9967

== ENCOUNTER → 2019-05-26 08:03 | Outpatient (CLI) | payer MEDICARE, OTHER, SELFPAY ==
[2019-05-26 09:51] LABS: Add Manual Diff / Slide Review NO; Basophils Absolute Auto 0 /uL (0-100); Basophils Percent Auto 0.7 % (0-2); Eosinophils Absolute Auto 0 /uL (0-450); Eosinophils Percent Auto 0.6 % (2-4); Hematocrit 41.8 % (41-53); Hemoglobin 13.9 g/dL (13.5-17.5); Lymphocytes Absolute Auto 900 /uL (1100-4500); Mean Corpuscular HGB Conc 33.3 % (30-36); Mean Corpuscular Hemoglobin 31.6 PG (26-34); Mean Corpuscular Volume 94.9 fL (80-100); Monocytes Absolute Auto 900 /uL (0-900); Monocytes Percent Auto 16.5 % (3-14); Neutrophils Absolute Auto 3600 /uL (1500-7000); Neutrophils Percent Auto 65.2 % (50-75); Platelet Count 272 X10^3/uL (150-400); Red Cell Distribution Width 12.8 % (11.6-14.8); White Blood Cell Count 5.6 X10^3/uL (4.5-11.0)
[2019-05-26 11:09] LABS: Alanine Aminotransferase 99 IU/L (<50); Albumin 3.4 g/dL (3.5-5.0); Alkaline Phosphatase 174 U/L (38-126); Aspartate Aminotransferase 44 IU/L (17-59); BUN Creatinine Ratio 23.9 (6-22); Bilirubin Total 1.2 mg/dL (0.2-1.3); Blood Urea Nitrogen 21 mg/dL (9-20); Calcium 8.9 mg/dL (8.4-10.2); Carbon Dioxide 22 mmol/L (22-32); Chloride 103 mmol/L (98-107); Estimated Glomerular Filt Rate > 60.0 mL/min (>60); Globulin 3.3 g/dL (1.7-4.1); Glucose 91 mg/dL (80-110); HEMOLYSIS < 15 (0-50); Potassium 4.5 mmol/L (3.4-5.1); Sodium 137 mmol/L (137-145); Total Protein 6.7 g/dL (6.3-8.2)
== END ==
PROVIDERS: PCP Internal Medicine; Referring Provider Internal Medicine; Visit Provider Internal Medicine
DX: I10 Essential (primary) hypertension (principal); E78.00 Pure hypercholesterolemia, unspecified
CPT/HCPCS: 36415; 80053; 85025

== ENCOUNTER → 2019-08-01 09:01 | Outpatient (CLI) | payer MEDICARE, OTHER, SELFPAY ==
[2019-08-02 09:30] LABS: COVID19 Sendout Not Detected (Not Detect)
== END ==
PROVIDERS: PCP Internal Medicine; Visit Provider Physician Assistant
DX: Z01.818 Encounter for other preprocedural examination (principal)
CPT/HCPCS: 87635

== ENCOUNTER → 2020-04-26 07:37 | Outpatient (CLI) | payer MEDICARE, OTHER, SELFPAY ==
[2020-04-26 08:08] LABS: Add Manual Diff / Slide Review NO; Basophils Absolute Auto 100 /uL (0-100); Eosinophils Absolute Auto 100 /uL (0-450); Eosinophils Percent Auto 1.1 % (2-4); Hematocrit 46.6 % (41-53); Hemoglobin 15.9 g/dL (13.5-17.5); Lymphocytes Absolute Auto 1300 /uL (1100-4500); Mean Corpuscular Hemoglobin 32.8 PG (26-34); Mean Corpuscular Volume 96.3 fL (80-100); Monocytes Absolute Auto 600 /uL (0-900); Monocytes Percent Auto 11.4 % (3-14); Neutrophils Absolute Auto 3500 /uL (1500-7000); Neutrophils Percent Auto 63.5 % (50-75); Platelet Count 210 X10^3/uL (150-400); Red Blood Cell Count 4.84 X10^6/uL (4.5-5.9); Red Cell Distribution Width 12.6 % (11.6-14.8); White Blood Cell Count 5.6 X10^3/uL (4.5-11.0)
[2020-04-26 08:43] LABS: Alanine Aminotransferase 29 IU/L (<50); Albumin Globulin Ratio 1.4 (1.0-2.8); Alkaline Phosphatase 68 U/L (38-126); Aspartate Aminotransferase 28 IU/L (17-59); BUN Creatinine Ratio 20.2 (6-22); Bilirubin Total 0.8 mg/dL (0.2-1.3); Blood Urea Nitrogen 19 mg/dL (9-20); Calcium 9.7 mg/dL (8.4-10.2); Carbon Dioxide 32 mmol/L (22-32); Chloride 101 mmol/L (98-107); Cholesterol 180 mg/dL (140-199); Estimated Glomerular Filt Rate > 60.0 mL/min (>60); Globulin 2.8 g/dL (1.7-4.1); Glucose 105 mg/dL (80-110); HDL Cholesterol 55 mg/dL (40-60); HEMOLYSIS < 15 (0-50); LDL Cholesterol Calculated 102 mg/dL (<100); Potassium 4.5 mmol/L (3.4-5.1); Sodium 136 mmol/L (137-145); Total Protein 6.8 g/dL (6.3-8.2); Triglycerides 113 mg/dL (35-150)
== END ==
PROVIDERS: PCP Internal Medicine; Referring Provider Internal Medicine; Visit Provider Internal Medicine
DX: I10 Essential (primary) hypertension (principal); M15.0 Primary generalized (osteo)arthritis; E66.9 Obesity, unspecified; E78.2 Mixed hyperlipidemia; Z12.5 Encounter for screening for malignant neoplasm of prostate
CPT/HCPCS: 36415; 80053; 80061; 85025; G0103

== ENCOUNTER → 2020-06-02 13:36 | Outpatient (CLI) | payer MEDICARE, OTHER, SELFPAY ==
--- NOTE | 2020-06-02 | DI.ECHO.S_ITS ---
[place] [facility]---------+ [facility] +---------+ : : [address] : : : : [id number] : : : : Phone: [phone] Echocardiogram Report + + :Name: NETO JOHNSTON Study Date: 06/02/2020 Height: 72 in : :[facility] ReadingLocation: Weight: 230 lb : : Gender: Male BSA: 2.3 m2 : :: 1940 Age: 79 yrs BP: 174/100 mmHg: :Reason For Study: HYPERTENSION : :Ordering Physician: MAGALI, : :MESFIN Performed By: Babs Gore : :Referring: MESFIN DE LOS SANTOS : + + Interpretation Summary The left ventricle is normal in size. The ejection fraction is estimated to be 55-60%. There is mild concentric left ventricular hypertrophy. The right ventricle is normal in size and function. No significant valvular pathology seen. The IVC is of normal diameter and collapses greater than 50% with a sniff. This suggests a low right atrial pressure of 3 mm Hg. There is aortic root sclerosis/calcification. Large liver cyst (9.1 x 8.3 cm) Procedure: A two-dimensional transthoracic echocardiogram with color flow and Doppler was performed. The study quality was technically adequate. There is no prior echocardiogram noted for this patient. The patient was in sinus rhythm with heart rates between 82-97 bpm during the exam. Left Ventricle: The left ventricle is normal in size. There is mild concentric left ventricular hypertrophy. There is no thrombus. The ejection fraction is estimated to be 55-60%. There are no focal wall motion abnormalities. Diastolic parameters suggest a relaxation abnormality of the left ventricle, consistent with probable normal filling pressures. Right Ventricle: The right ventricle is normal in size and function. Atria: The left atrial size is normal. Right atrial size is normal. There is no Doppler evidence for an interatrial shunt. Mitral Valve: The mitral valve leaflets are slightly calcified. There is trace mitral regurgitation. Aortic Valve: The aortic valve is trileaflet. The aortic valve opens well. The aortic valve is slightly calcified. There is no aortic valve stenosis. No aortic regurgitation is present. Tricuspid Valve: The tricuspid valve is normal in structure and function. There is trace tricuspid regurgitation. Pulmonary artery pressures cannot be estimated because of the lack of a measurable TR jet velocity but the IVC suggests a CVP of around 38 mmHg. Pulmonic Valve: The pulmonic valve leaflets are thin and pliable; valve motion is normal. There is trace pulmonic regurgitation. Great Vessels: The aortic root is normal size. There is aortic root sclerosis/calcification. The ascending aorta is at the upper limits of normal in size. The IVC is of normal diameter and collapses greater than 50% with a sniff. This suggests a low right atrial pressure of 3 mm Hg. Pericardium/ Pleura There is no pericardial effusion. There is no pleural effusion. MMode/2D Measurements & Calculations LVIDd: 5.5 cm LVOT diam: 2.1 cm LVIDs: 4.3 cm Ao root diam: 3.7 cm FS: 21.3 % asc Aorta Diam: 3.7 cm EPSS: 1.2 cm Ao Arch Diam (Prox Trans): 3.4 cm IVSd: 1.2 cm LVPWd: 1.4 cm LV nix. diameter/BSA (cm/m^2): 2.4 LV sys. diameter/BSA (cm/m^2): 1.9 LA A2 area: 26.2 cm2 RA long axis: 5.6 cm LA A4 area: 18.4 cm2 RA area: 16.1 cm2 LA length (vol): 5.8 cm RA vol: 39.4 ml LA vol: 70.2 ml RA : 17.4 ml/m2 LA vol index: 31.1 ml/m2 IVC diam: 1.3 cm RVD1 (basal): 3.5 cm TAPSE: 2.0 cm Doppler Measurements & Calculations Ao V2 max: 145.4 cm/sec LVOT Max Dennis: 117.7 cm/sec Ao V2 mean: 110.2 cm/sec LV V1 max P.5 mmHg Ao max P.5 mmHg LV V1 VTI: 25.7 cm Ao mean P.2 mmHg SUJATHA(I,D): 3.6 cm2 Ao V2 VTI: 25.6 cm SUJATHA(V,D): 2.9 cm2 sev ratio: 1.0 SUJATHA indexed to BSA (cm^2/m^2): 1.6 MV E max dennis: 77.3 cm/sec TR max dennis: 297.3 cm/sec MV A max dennis: 78.1 cm/sec TR max P.4 mmHg MV E/A: 0.99 PA V2 max: 96.1 cm/sec Med Peak E' Dennis: 9.0 cm/sec PA V2 mean: 65.5 cm/sec E/E' med: 8.6 PA mean P.9 mmHg Lat Peak E' Dennis: 10.4 cm/sec PA pr(Accel): 56.7 mmHg E/E' lat: 7.5 E/e' average: 8.0 MV dec time: 0.24 sec SV(LVOT): 91.4 ml Reading Physician:06:16 PM
== END ==
PROVIDERS: PCP Internal Medicine; Referring Provider Internal Medicine; Visit Provider Internal Medicine
DX: I10 Essential (primary) hypertension (principal); K76.89 Other specified diseases of liver; I70.0 Atherosclerosis of aorta
CPT/HCPCS: 93306

== ENCOUNTER → 2020-11-02 07:59 | Outpatient (CLI) | payer MEDICARE, OTHER, SELFPAY ==
--- NOTE | 2020-11-02 | DI.RAD.S_ITS ---
PROCEDURE: XR KNEE RT 3V INDICATIONS: Pain in right KNEE TECHNIQUE: 3 views of the knee were acquired. COMPARISON: None. FINDINGS: Bones: No fractures or dislocations. No suspicious bony lesions. Mild symmetric tricompartmental joint space narrowing at the right knee. Soft tissues: No joint effusion. No suspicious soft tissue calcifications. IMPRESSION: Mild tricompartmental joint space narrowing indicating mild osteoarthritis without trauma. Dictated by: Lito Cornejo M.D. on 11/02/2020 at 10:48 Approved by: Lito Cornejo M.D. on 11/02/2020 at 10:49
== END ==
PROVIDERS: PCP Internal Medicine; Referring Provider Internal Medicine; Visit Provider Internal Medicine
DX: M25.561 Pain in right knee (principal)
CPT/HCPCS: 73562

== ENCOUNTER → 2021-05-22 07:47 | Outpatient (CLI) | payer MEDICARE, OTHER, SELFPAY ==
[2021-05-22 09:03] LABS: Add Manual Diff / Slide Review NO; Basophils Absolute Auto 0 /uL (0-100); Basophils Percent Auto 0.8 % (0-2); Eosinophils Absolute Auto 100 /uL (0-450); Eosinophils Percent Auto 2.1 % (2-4); Hematocrit 45.5 % (41-53); Hemoglobin 15.8 g/dL (13.5-17.5); Lymphocytes Absolute Auto 1100 /uL (1100-4500); Lymphocytes Percent Auto 18.9 % (25-40); Mean Corpuscular HGB Conc 34.8 % (30-36); Mean Corpuscular Hemoglobin 33.2 PG (26-34); Mean Corpuscular Volume 95.6 fL (80-100); Monocytes Absolute Auto 600 /uL (0-900); Monocytes Percent Auto 11.1 % (3-14); Neutrophils Absolute Auto 3800 /uL (1500-7000); Neutrophils Percent Auto 67.1 % (50-75); Platelet Count 203 X10^3/uL (150-400); Red Blood Cell Count 4.76 X10^6/uL (4.5-5.9); White Blood Cell Count 5.7 X10^3/uL (4.5-11.0)
[2021-05-22 09:10] LABS: Hemoglobin A1C% w Est Avg Glu 5.9 % (4.0-6.0)
[2021-05-22 09:46] LABS: BUN Creatinine Ratio 32.6 (6-22); Blood Urea Nitrogen 29 mg/dL (9-20); Calcium 8.8 mg/dL (8.4-10.2); Carbon Dioxide 25 mmol/L (22-32); Chloride 105 mmol/L (98-107); Estimated Glomerular Filt Rate > 60.0 mL/min (>60); Glucose 99 mg/dL (80-110); HEMOLYSIS 145 (0-50); Sodium 138 mmol/L (137-145)
== END ==
PROVIDERS: PCP Internal Medicine; Referring Provider Orthopaedic Surgery; Visit Provider Orthopaedic Surgery
DX: Z01.812 Encounter for preprocedural laboratory examination (principal); Z01.818 Encounter for other preprocedural examination; R73.9 Hyperglycemia, unspecified
CPT/HCPCS: 36415; 80048; 83036; 85025; 93005; 93010

== ENCOUNTER → 2021-09-12 10:08 | Outpatient (CLI) | payer MEDICARE, OTHER, SELFPAY ==
[2021-09-12 11:22] LABS: COVID19 -Nasal RAPID Negative (Negative)
== END ==
PROVIDERS: PCP Internal Medicine; Visit Provider Surgery
DX: Z01.812 Encounter for preprocedural laboratory examination (principal); Z20.822 Contact with and (suspected) exposure to COVID-19
CPT/HCPCS: 87635; C9803

== ENCOUNTER 2021-09-13 07:46 | Day surgery (SDC) | payer MEDICARE, OTHER, SELFPAY ==
[2021-09-08 09:15] VITALS: BMI 33.2
[2021-09-13 08:01] VITALS: BMI 33.2
[2021-09-13 08:05] VITALS: BP 151/86; PULSE 84; RESP 22; TEMP 36.8; O2SAT 98
[2021-09-13] MEDS: LACTATED RINGERS 1,000 ML 100 ML IV (08:11)
--- NOTE | 2021-09-13 08:47 | PM.PREOP ---
Pre-operative Note Interval Note History & Physical reviewed/Exam performed by Physician: Yes Changes to H&P: No
[2021-09-13] MEDS: CLINDAMYCIN 900 MG/50 ML PIGGYBACK 50 MG IV (09:05)
[2021-09-13] MEDS: BUPIVACAINE 0.25% (PF) VIAL 30 ML INJ (09:25)
--- NOTE | 2021-09-13 09:29 | SUR.OPER ---
Supine on padded OR bed, head on pillow, arms secured on padded arm boards at <90 degrees abduction, legs uncrossed, safety belt at thigh, tape over blanket over lower legs.
--- NOTE | 2021-09-13 09:54 | PM.OP.1 ---
Operative Date/Time/Diagnoses Date of procedure: 09/13/21 Time of procedure: 09:55 Pre-op diagnosis: Umbilical hernia Post-op diagnosis: same Procedure & Clinicians Procedure: Open umbilical hernia repair with mesh Same procedure as scheduled: Yes Indications: Symptomatic umbilical hernia reducible. Surgeon: Franky Post Click Yes if Unassisted: Yes Anesthesia Type: General Operative Notes Findings: 1.5 cm fascial defect containing viable omentum Specimen(s): none sent Estimated Blood Loss (mL): 20 Procedure in detail: Patient was brought to the operating room placed supine on the table. Bilateral lower extremity compression devices were applied. General anesthesia was induced and they were intubated with an endotracheal tube. They received clindamycin prior to skin incision. They were prepped and draped in sterile fashion. A time-out was performed. A curvilinear incision was made inferior to the umbilicus. The subcutaneous tissues were divided. The umbilical hernia was identified and the hernia sac was dissected off the umbilical skin and circumferentially off of the fascia defect. The hernia sac was sharply opened and contained viable omentum. The omentum was reduced back into the abdomen. Using blunt dissection I carefully carefully freed the hernia sac from beneath the fascia defect in order to accomodate the mesh. The fascia defect was 1.5 cm in maximal diameter. A Bard Ventralex ST hernia patch 4 cm was inserted beneath the fascia defect in a sublay position. The mesh was anchored in multiple locations using Ethibond suture to the fascia and the fascial defect was closed over the mesh. The umbilical skin was tacked to the subcutaneous tissues and then the remainder of the subcutaneous tissues were reapproximated using 3 0 Vic[place],l skin closed with 4 0 Monocryl followed by the application of Dermabond and Steri-Strips. Sponge instrument count at the end of the operation was correct. Patient tolerated procedure well was extubated and transferred to postoperative care unit in stable condition. Complications: none Post-operative Condition: stable Disposition: same day surgery
[2021-09-13 10:02] VITALS: BP 140/86; PULSE 77; RESP 18; TEMP 36.2; O2SAT 96
[2021-09-13 10:07] VITALS: BP 135/83; PULSE 72; RESP 18; O2SAT 95
[2021-09-13 10:12] VITALS: BP 124/89; PULSE 71; RESP 18; O2SAT 94
[2021-09-13 10:17] VITALS: BP 116/85; PULSE 72; RESP 16; O2SAT 95
[2021-09-13 10:22] VITALS: BP 128/85; PULSE 69; RESP 15; O2SAT 94
--- NOTE | 2021-09-13 10:46 | SUR.PHASEII ---
Discharge instructions reviewed with patient and spouse, with time allowed for questions. Dressing C/D/I, pt denies any distress and ready to discharge home. Pt A&IOx4, dressed independently, transported via w/c to ER exit to meet spouse who will transport home.
== END 2021-09-13 10:48 | disposition home or self-care (01) ==
PROVIDERS: PCP Internal Medicine; Referring Provider Surgery; Visit Provider Surgery
PROC: (CPT 49585; principal; 2021-09-13 08:45)
DX: K42.9 Umbilical hernia without obstruction or gangrene (principal); I10 Essential (primary) hypertension
CPT/HCPCS: 49585; 00750; J2250; J2704; J3010

== ENCOUNTER → 2022-01-09 11:42 | Outpatient (CLI) | payer MEDICARE, OTHER, SELFPAY ==
[2022-01-09 13:14] LABS: COVID19 -Nasal RAPID Negative (Negative)
== END ==
PROVIDERS: PCP Internal Medicine; Visit Provider Surgery
DX: Z20.822 Contact with and (suspected) exposure to COVID-19 (principal); Z01.812 Encounter for preprocedural laboratory examination
CPT/HCPCS: 87635; C9803

== ENCOUNTER 2022-01-10 08:56 | Day surgery (SDC) | payer MEDICARE, OTHER, SELFPAY ==
[2022-01-05 10:23] VITALS: BMI 30.9
[2022-01-10] VITALS (7 sets, daily range): BP systolic 138–187; BP diastolic 87–104; PULSE 78–92; RESP 12–18; TEMP 36.3–37.1; O2SAT 92–97; BMI 34.4
[2022-01-10] MEDS: LACTATED RINGERS 1,000 ML 100 ML IV (09:18)
--- NOTE | 2022-01-10 09:48 | P.HP_ITS ---
History of Present Illness History of Present Illness Date Patient Seen: 01/10/22 Time Patient Seen: 09:49 Chief complaint: [facility] Narrative: 81M with a recurrent umbilical hernia here for elective open repair. Please refer to H&P 11/16/2021 for further detail. 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) Hx of cholecystectomy (04/2020) Hx of umbilical hernia repair (09/13/21) Status post appendectomy (10/2013) Family & Social History Social History: household members spouse Tobacco & Substance use: Tobacco type cigarettes,pipe Smoking Status Former smoker alcohol intake current alcohol intake frequency 0-2 drinks per day Substance Use Type does not use Meds Home Medications and Allergies Home Medications Medication Instructions Recorded Confirmed Type atorvastatin 10 mg tablet 10 mg PO BEDTIME 04/28/19 01/05/22 History benazepril 20 mg tablet 20 mg PO DAILY 04/28/19 01/05/22 History hydrochlorothiazide 25 mg tablet 25 mg PO DAILY 05/22/19 01/05/22 History acetaminophen 325 mg capsule 650 mg PO QID PRN pain #60 caps 09/13/21 01/05/22 Rx (Tylenol) ibuprofen 200 mg tablet 400 mg PO Q6H #60 tabs 09/13/21 01/05/22 Rx Allergies Allergy/AdvReac Type Severity Reaction Status Date / Time Penicillins Allergy Rash Verified 01/10/22 09:44 Exam Vital Signs (past 8 hours): - 01/10/22 09:35 Temperature 97.5 F L Pulse Rate 82 Respiratory Rate 18 Blood Pressure 187/104 H Pulse Oximetry 95 Oxygen Delivery Method Room Air Oxygen Delivery Method Room Air Narrative Exam Narrative: Gen-Adult man alert and oriented Abdomen soft reducible umbilical hernia Assessment & Plan Assessment and plan (1) Recurrent umbilical hernia: Status: Acute Assessment & Plan narrative: 81M with a recurrent umbilical hernia here for elective repair. Operative overview discussed. Risks including bleeding, infection, reoccurence, damage to surrounding structures discussed. Questions have been answered and he is in agr eement with this plan. Time Spent With Patient Critical Care time: I spent a total of [] minutes of critical care time on this patient's care today; this time is exclusive of procedural time.
--- NOTE | 2022-01-10 10:03 | PM.OP.1 ---
Operative Date/Time/Diagnoses Date of procedure: 01/10/22 Time of procedure: 10:03 Pre-op diagnosis: Recurrent umbilical hernia Post-op diagnosis: same Procedure & Clinicians Procedure: open repair of recurrent umbilical hernia Same procedure as scheduled: Yes Indications: recurrent umbilical hernia Surgeon: Franky Post Anesthesia Type: General Operative Notes Findings: 4 cm fascial defect containing omentum. The previous meshes is not adequately covering the fascial defect and is deformed Estimated Blood Loss (mL): 20 Procedure in detail: Patient was brought to the operating room placed supine on the table. Bilateral lower extremity compression devices were applied. General anesthesia was induced and they were intubated with an endotracheal tube. They received 2 g of Ancef prior to skin incision. They were prepped and draped in sterile fashion. A time-out was performed. A curvilinear incision was made inferior to the umbilicus. The subcutaneous tissues were divided. There was a large amount of omentum protruding through an approximately 4 cm fascial defect. The previous mesh was encountered it was displaced and not adequately covering the fascial defect. Mesh was explanted with sharp dissection. Given the large volume of omentum protruding through the defect the omentum was resected and ligated with Vicryl suture. The remainder of the omentum was reduced back into the abdomen. The subcutaneous tissue was then cleared off of the fascia and the fascia was reapproximated using interrupted Ethibond suture. An overlay mesh was then placed which was 6 x 6 in and cut to size the defect appropriately and anchored to the fascia using interrupted Ethibond suture. The subcutaneous tissues were reapproximated using 3 0 Vicry,l skin closed with 4 0 Monocryl followed by the application of Dermabond. Sponge instrument count at the end of the operation was correct. Patient tolerated procedure well was extubated and transferred to postoperative care unit in stable condition. Complications: none Post-operative Condition: stable Disposition: same day surgery
[2022-01-10] MEDS: CLINDAMYCIN 900 MG/50 ML PIGGYBACK 50 MG IV (10:08)
--- NOTE | 2022-01-10 10:16 | SUR.OPER ---
Supine on padded OR bed, head on pillow, arms secured on padded arm boards at <90 degrees abduction, legs uncrossed, safety belt at thigh, tape over blanket over lower legs. Gel pad placed under bilateral heels. Patients bilateral hearing aids left in place, patients glasses placed in belongings bag in pre-op area.
[2022-01-10] MEDS: BUPIVACAINE 0.25% (PF) VIAL 30 ML INJ (10:21)
== END 2022-01-10 12:10 | disposition home or self-care (01) ==
PROVIDERS: PCP Internal Medicine; Referring Provider Surgery; Visit Provider Surgery
PROC: (CPT 49585; principal; 2022-01-10 10:15)
DX: K42.9 Umbilical hernia without obstruction or gangrene (principal); I10 Essential (primary) hypertension; E78.5 Hyperlipidemia, unspecified
CPT/HCPCS: 49585; 82962; J1100; J2250; J2405; J2704; J3010

== ENCOUNTER → 2022-04-16 10:07 | Outpatient (CLI) | payer MEDICARE, OTHER, SELFPAY ==
[2022-04-16 11:07] LABS: Hemoglobin A1C% w Est Avg Glu 5.9 % (4.0-6.0)
[2022-04-16 11:45] LABS: Alanine Aminotransferase 34 IU/L (<50); Albumin Globulin Ratio 1.3 (1.0-2.8); Alkaline Phosphatase 76 U/L (38-126); Aspartate Aminotransferase 32 IU/L (17-59); BUN Creatinine Ratio 21.9 (6-22); Bilirubin Total 0.9 mg/dL (0.2-1.3); Blood Urea Nitrogen 21 mg/dL (9-20); Carbon Dioxide 25 mmol/L (22-32); Chloride 102 mmol/L (98-107); Cholesterol 182 mg/dL (140-199); Estimated Glomerular Filt Rate > 60 mL/min (>60); Globulin 3.2 g/dL (1.7-4.1); Glucose 104 mg/dL (80-110); HDL Cholesterol 42 mg/dL (40-60); HEMOLYSIS < 15 (0-50); LDL Cholesterol Calculated 112 mg/dL (<100); Potassium 4.1 mmol/L (3.4-5.1); Sodium 136 mmol/L (137-145); Total Protein 7.2 g/dL (6.3-8.2); Triglycerides 140 mg/dL (35-150)
== END ==
PROVIDERS: PCP Family Medicine; Referring Provider Family Medicine; Visit Provider Family Medicine
DX: R73.01 Impaired fasting glucose (principal); I10 Essential (primary) hypertension; E78.5 Hyperlipidemia, unspecified
CPT/HCPCS: 36415; 80053; 80061; 83036

== ENCOUNTER → 2022-04-23 07:37 | Outpatient (CLI) | payer MEDICARE, OTHER, SELFPAY ==
[2022-04-23 08:31] LABS: Add Manual Diff / Slide Review NO; Basophils Absolute Auto 100 /uL (0-100); Basophils Percent Auto 1.2 % (0-2); Eosinophils Absolute Auto 100 /uL (0-450); Eosinophils Percent Auto 2.1 % (2-4); Hematocrit 47.3 % (41-53); Hemoglobin 16.1 g/dL (13.5-17.5); Lymphocytes Absolute Auto 1100 /uL (1100-4500); Lymphocytes Percent Auto 20.7 % (25-40); Mean Corpuscular HGB Conc 34.1 % (30-36); Mean Corpuscular Hemoglobin 32.8 PG (26-34); Mean Corpuscular Volume 96.1 fL (80-100); Monocytes Absolute Auto 500 /uL (0-900); Monocytes Percent Auto 10.3 % (3-14); Neutrophils Absolute Auto 3400 /uL (1500-7000); Neutrophils Percent Auto 65.7 % (50-75); Platelet Count 212 X10^3/uL (150-400); Red Blood Cell Count 4.92 X10^6/uL (4.5-5.9); Red Cell Distribution Width 13.1 % (11.6-14.8); White Blood Cell Count 5.2 X10^3/uL (4.5-11.0)
[2022-04-23 09:11] LABS: BUN Creatinine Ratio 25.5 (6-22); Blood Urea Nitrogen 27 mg/dL (9-20); Carbon Dioxide 27 mmol/L (22-32); Chloride 100 mmol/L (98-107); Estimated Glomerular Filt Rate > 60 mL/min (>60); Glucose 97 mg/dL (80-110); HEMOLYSIS < 15 (0-50); Potassium 4.3 mmol/L (3.4-5.1); Sodium 136 mmol/L (137-145)
== END ==
PROVIDERS: PCP Family Medicine; Referring Provider Orthopaedic Surgery; Visit Provider Orthopaedic Surgery
DX: Z01.818 Encounter for other preprocedural examination (principal); M25.562 Pain in left knee; Z01.812 Encounter for preprocedural laboratory examination
CPT/HCPCS: 36415; 80048; 85025; 93005; 93010

== ENCOUNTER → 2022-09-17 07:43 | Outpatient (CLI) | payer MEDICARE, OTHER, SELFPAY ==
--- NOTE | 2022-09-17 07:44 | DI.ECHO.S_ITS ---
[facility] +---------+ : : [address] : : : : [id number] : : : : Phone: [phone]+ Echocardiogram Report + + :Name: NETO JOHNSTON Study Date: 09/17/2022 Height: 72 in : :[facility] ReadingLocation: Weight: 251 lb : : Gender: Male BSA: 2.3 m2 : :: 1940 Age: 81 yrs BP: 158/92 mmHg: :Reason For Study: NEW LEFT BUNDLE BRANCH BLOCK : :Ordering Physician: IAZIAH CARRANZA Performed By: Babs Gore : :Referring: CODY ORTIZ : + + Interpretation Summary Normal left ventricle size with ejection fraction 60-65%. Mild aortic regurgitation. Incidental finding: Large liver cyst. Comparison is made with the echocardiogram of 06/02/2020, aortic regurgitation is new. Procedure: A two-dimensional transthoracic echocardiogram with color flow and Doppler was performed. The study quality was technically adequate. Comparison is made with the echocardiogram of 06/02/2020. The heart rate ranged between 66-95 bpm during the study. Left Ventricle: The left ventricle is normal in size and wall thickness. The ejection fraction is estimated to be 60-65%. There are no focal wall motion abnormalities. Diastolic function could not be accurately assessed due to confounding valvular disease. Right Ventricle: The right ventricle is at the upper limits of normal in size. The right ventricular systolic function is normal. Atria: The left atrial size is normal. Right atrial size is normal. There is no Doppler evidence for an interatrial shunt. Mitral Valve: The mitral valve is normal in structure and function. There is trace mitral regurgitation. Aortic Valve: The aortic valve is trileaflet. The aortic valve opens well. There is no aortic valve stenosis. There is mild aortic regurgitation. Tricuspid Valve: The tricuspid valve is normal in structure and function. There is a trace or physiologic amount of tricuspid regurgitation. Pulmonary artery pressures cannot be estimated because of the lack of a measurable TR jet velocity. Pulmonic Valve: The pulmonic valve is not well visualized. There is mild pulmonic regurgitation. Great Vessels: The aortic root is normal size. The dimensions of the ascending aorta are normal. The IVC is of normal diameter and collapses greater than 50% with a sniff. This suggests a low right atrial pressure of 3 mm Hg. Pericardium/ Pleura There is no pericardial effusion. There is an anterior echo-free space consistent with a fat pad. There is no pleural effusion. MMode/2D Measurements & Calculations LVIDd: 5.8 cm LVOT diam: 2.2 cm LVIDs: 4.3 cm Ao root diam: 3.7 cm FS: 26.6 % asc Aorta Diam: 3.7 cm EPSS: 1.2 cm Ao Arch Diam (Prox Trans): 3.5 cm IVSd: 0.81 cm LVPWd: 1.1 cm LV nix. diameter/BSA (cm/m^2): 2.5 LV sys. diameter/BSA (cm/m^2): 1.8 LA A2 area: 19.0 cm2 RA long axis: 5.1 cm LA A4 area: 16.1 cm2 RA area: 14.9 cm2 LA length (vol): 5.6 cm RA vol: 37.4 ml LA vol: 46.5 ml RA : 15.9 ml/m2 LA vol index: 19.8 ml/m2 IVC diam: 1.2 cm RVD1 (basal): 4.0 cm RVD2 (mid): 3.0 cm TAPSE: 2.2 cm Doppler Measurements & Calculations Ao V2 max: 152.1 cm/sec LVOT Max Dennis: 90.9 cm/sec Ao V2 mean: 104.3 cm/sec LV V1 max P.3 mmHg Ao max P.3 mmHg LV V1 VTI: 19.2 cm Ao mean P.0 mmHg SUJATHA(I,D): 2.5 cm2 Ao V2 VTI: 29.5 cm SUJATHA(V,D): 2.3 cm2 sev ratio: 0.65 SUJATHA indexed to BSA (cm^2/m^2): 1.0 AI P1/2t: 647.7 msec AI dec slope: 172.9 cm/sec2 MV E max dennis: 69.5 cm/sec PA V2 max: 82.8 cm/sec MV A max dennis: 97.6 cm/sec PA V2 mean: 61.2 cm/sec MV E/A: 0.71 PA mean P.6 mmHg Med Peak E' Dennis: 6.0 cm/sec PA pr(Accel): 39.6 mmHg E/E' med: 11.7 Lat Peak E' Dennis: 7.2 cm/sec E/E' lat: 9.7 E/e' average: 10.7 MV dec time: 0.18 sec SV(LVOT): 72.4 ml Electronically signed by: Loli johnson Reading Physician:09/17/2022 09:36 AM
== END ==
PROVIDERS: PCP Family Medicine; Referring Provider Family Medicine; Visit Provider Family Medicine
DX: I44.7 Left bundle-branch block, unspecified (principal); I35.1 Nonrheumatic aortic (valve) insufficiency
CPT/HCPCS: 93306

== ENCOUNTER → 2022-09-18 14:43 | Outpatient (CLI) | payer MEDICARE, OTHER, SELFPAY ==
--- NOTE | 2022-09-18 | DI.NM.S_ITS ---
PROCEDURE: NM EXERCISE TREADMILL NON NUC COMPARISON: None. INDICATIONS: left bundle-branch block FINDINGS: The patient exercised for 3 minutes and 17 seconds reaching 121% of maximum predicted heart rate. 4.6METS, DEVON +30%. Appropriate BP response to exercise. No ST changes and no angina during exercise or recovery. Frequent PACs and frequent PVCs present during the study. SVT noted during peak exercise and early recovery and atrial fibrillation can't be excluded as artifacts limit interpretation. IMPRESSION: Low risk, normal treadmill ECG only stress test from inducible ischemia standpoint. Frequent PACs and frequent PVCs present during the study. SVT noted during peak exercise and early recovery that could be atrial tachycardia but atrial fibrillation can't be excluded as artifacts limit interpretation. Recommend Zio monitor for further assessment. Consider cardiology consultation. Dictated by: Sancho Perkins MD on 09/20/2022 at 13:17 Approved by: Sancho Perkins MD on 09/20/2022 at 13:21
== END ==
PROVIDERS: PCP Family Medicine; Referring Provider Family Medicine; Visit Provider Family Medicine
DX: I44.7 Left bundle-branch block, unspecified (principal); I10 Essential (primary) hypertension
CPT/HCPCS: 93017

== ENCOUNTER → 2023-04-23 07:22 | Outpatient (CLI) | payer MEDICARE, OTHER, SELFPAY ==
[2023-04-23 08:19] LABS: Alanine Aminotransferase 32 IU/L (<50); Albumin 4.4 g/dL (3.5-5.0); Albumin Globulin Ratio 1.4 (1.0-2.8); Alkaline Phosphatase 65 U/L (38-126); Aspartate Aminotransferase 36 IU/L (17-59); BUN Creatinine Ratio 19.2 (6-22); Bilirubin Total 1.1 mg/dL (0.2-1.3); Blood Urea Nitrogen 25 mg/dL (9-20); Calcium 9.8 mg/dL (8.4-10.2); Carbon Dioxide 27 mmol/L (22-32); Chloride 101 mmol/L (98-107); Cholesterol 122 mg/dL (140-199); Estimated Glomerular Filt Rate 56 mL/min (>60); Globulin 3.2 g/dL (1.7-4.1); Glucose 104 mg/dL (80-110); HDL Cholesterol 33 mg/dL (40-60); HEMOLYSIS 20 (0-50); LDL Cholesterol Calculated 68 mg/dL (<100); Magnesium 2.1 mg/dL (1.6-2.3); Potassium 4.6 mmol/L (3.4-5.1); Sodium 138 mmol/L (137-145); Total Protein 7.6 g/dL (6.3-8.2); Triglycerides 103 mg/dL (35-150)
[2023-04-23 08:48] LABS: Thyroid Stimulating Hormone 2.58 uIU/mL (0.47-4.68)
== END ==
PROVIDERS: PCP Internal Medicine; Referring Provider Internal Medicine Cardiovascular Disease; Visit Provider Internal Medicine Cardiovascular Disease
DX: I10 Essential (primary) hypertension (principal); E78.2 Mixed hyperlipidemia
CPT/HCPCS: 36415; 80053; 80061; 83735; 84443

== ENCOUNTER → 2023-04-25 10:38 | Outpatient (CLI) | payer MEDICARE, OTHER, SELFPAY ==
--- NOTE | 2023-04-25 10:40 | DI.US.S_ITS ---
PROCEDURE: US CAROTID DOPPLER BI INDICATIONS: LEFT CAROTID BRUIT TECHNIQUE: Color and pulse Doppler interrogation was performed of both carotid systems, with image documentation and velocity measurements. COMPARISON: None. FINDINGS: Stenosis calculations are based on SRU (Society of Radiologists in Ultrasound) criteria. The flow velocities and the arterial waveforms are normal within both carotid arterial systems. Atherosclerotic plaque is seen on both sides, including soft plaque within the distal left common carotid artery. The estimated degree of internal carotid artery stenosis is less than 50%. There is retrograde flow seen within the left vertebral artery. The right brachial blood pressure is 108/72. The left brachial blood pressure cannot be obtained. IMPRESSION: Left-sided subclavian steal until proven otherwise. No hemodynamically significant stenosis is seen. Atherosclerotic plaque is noted bilaterally. Dictated by: Douglas Kent M.D. on 04/25/2023 at 11:27 Approved by: Douglas Kent M.D. on 04/25/2023 at 11:35
== END ==
PROVIDERS: PCP Internal Medicine; Referring Provider Internal Medicine Cardiovascular Disease; Visit Provider Internal Medicine Cardiovascular Disease
DX: G45.8 Other transient cerebral ischemic attacks and related syndromes (principal); R09.89 Other specified symptoms and signs involving the circulatory and respiratory systems
CPT/HCPCS: 93880

== ENCOUNTER → 2023-05-13 06:57 | Outpatient (CLI) | payer MEDICARE, OTHER, SELFPAY ==
[2023-05-13 08:08] LABS: BUN Creatinine Ratio 18.2 (6-22); Blood Urea Nitrogen 22 mg/dL (9-20); Calcium 9.3 mg/dL (8.4-10.2); Carbon Dioxide 28 mmol/L (22-32); Chloride 106 mmol/L (98-107); Estimated Glomerular Filt Rate > 60 mL/min (>60); Glucose 105 mg/dL (80-110); HEMOLYSIS < 15 (0-50); Potassium 4.4 mmol/L (3.4-5.1); Sodium 138 mmol/L (137-145)
== END ==
LOC: LAB 06:59
PROVIDERS: PCP Internal Medicine; Referring Provider Internal Medicine; Visit Provider Internal Medicine
DX: R79.89 Other specified abnormal findings of blood chemistry (principal)
CPT/HCPCS: 36415; 80048

== ENCOUNTER → 2023-08-21 08:34 | Outpatient (CLI) | payer MEDICARE, OTHER, SELFPAY ==
[2023-08-21 10:34] LABS: Hemoglobin A1C% w Est Avg Glu 5.9 % (4.0-6.0)
[2023-08-21 10:46] LABS: Aspartate Aminotransferase 27 IU/L (17-59); Blood Urea Nitrogen 22 mg/dL (9-20); Calcium 9.1 mg/dL (8.4-10.2); Carbon Dioxide 27 mmol/L (22-32); Chloride 103 mmol/L (98-107); Cholesterol 136 mg/dL (140-199); Estimated Glomerular Filt Rate > 60 mL/min (>60); Glucose 109 mg/dL (80-110); HDL Cholesterol 57 mg/dL (40-60); HEMOLYSIS < 15 (0-50); LDL Cholesterol Calculated 64 mg/dL (<100); Potassium 4.8 mmol/L (3.4-5.1); Sodium 136 mmol/L (137-145); Triglycerides 76 mg/dL (35-150)
[2023-08-21 11:15] LABS: Prostate Specific Antigen 1.86 ng/mL (0.10-4.00)
== END ==
PROVIDERS: PCP Internal Medicine; Referring Provider Internal Medicine; Visit Provider Internal Medicine
DX: I10 Essential (primary) hypertension (principal); R73.01 Impaired fasting glucose; N40.1 Benign prostatic hyperplasia with lower urinary tract symptoms; E78.2 Mixed hyperlipidemia; N13.8 Other obstructive and reflux uropathy
CPT/HCPCS: 36415; 80048; 80061; 83036; 84153; 84450

== ENCOUNTER 2023-09-19 08:17 | Emergency (ER) | payer MEDICARE, OTHER, SELFPAY ==
[2023-09-19] VITALS (28 sets, daily range): BP systolic 87–194; BP diastolic 53–94; PULSE 54–99; RESP 11–27; TEMP 36.4; O2SAT 85–99; BMI 32.3
--- NOTE | 2023-09-19 08:23 | DI.RAD.S_ITS ---
PROCEDURE: XR ANKLE LT 2V INDICATIONS: fracture/dislocation TECHNIQUE: 3 views of the ankle were acquired. COMPARISON: None. FINDINGS: Bones: Fracture dislocation at the ankle. Fractures include a distal fibular fracture above the syndesmosis which is quite displaced and a probable posterior malleolar fracture. No suspicious bony lesions. Soft tissues: No tibiotalar joint effusion. Achilles tendon appears normal. IMPRESSION: Fracture dislocation at the ankle. Dictated by: Dixon Mccollum M.D. on 09/19/2023 at 9:08 Approved by: Dixon Mccollum M.D. on 09/19/2023 at 9:09
[2023-09-19] MEDS: CEFAZOLIN VIAL 1 GM in SODIUM CHLORIDE 0.9% 100 ML IV (08:35)
[2023-09-19 08:36] LABS: Add Manual Diff / Slide Review NO; Basophils Absolute Auto 100 /uL (0-100); Eosinophils Absolute Auto 100 /uL (0-450); Eosinophils Percent Auto 1.9 % (2-4); Hematocrit 44.2 % (41-53); Hemoglobin 14.9 g/dL (13.5-17.5); Lymphocytes Absolute Auto 1200 /uL (1100-4500); Lymphocytes Percent Auto 16.2 % (25-40); Mean Corpuscular HGB Conc 33.7 % (30-36); Mean Corpuscular Hemoglobin 32.5 PG (26-34); Mean Corpuscular Volume 96.3 fL (80-100); Monocytes Absolute Auto 700 /uL (0-900); Neutrophils Absolute Auto 5100 /uL (1500-7000); Neutrophils Percent Auto 70.9 % (50-75); Platelet Count 262 X10^3/uL (150-400); Red Blood Cell Count 4.59 X10^6/uL (4.5-5.9); Red Cell Distribution Width 13.7 % (11.6-14.8); White Blood Cell Count 7.2 X10^3/uL (4.5-11.0)
[2023-09-19] MEDS: HYDROMORPHONE 1 MG INJ IV (08:36)
--- NOTE | 2023-09-19 08:41 | EKG_ITS ---
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
--- NOTE | 2023-09-19 08:47 | EKG_ITS ---
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
--- NOTE | 2023-09-19 09:13 | ED.LOWEXIN ---
HPI - Extremity Injury (Lower) General Chief Complaint: Extremity Injury, Lower Stated Complaint: Fall Time Seen by Provider: 09/19/23 08:23 Source: patient Mode of arrival: Ambulatory History of Present Illness HPI Narrative: Patient is a 82-year-old male history of hypertension hyperlipidemia presenting today with fall off ladder. He reports he was about 4 steps up on a ladder when he fell. He has an obvious right ankle open fracture dislocation he is able to move his toes. He denies any sort of head injury loss of consciousness or neck pain. He denies any other injury. Not on any anticoagulation or antiplatelet medication. Reports his tetanus is up-to-date Related Data Home Medications Medication Instructions Recorded Confirmed meloxicam 15 mg tablet 15 mg PO DAILY PRN 02/12/23 08/21/23 metoprolol succinate 25 mg 25 mg PO DAILY 05/08/23 08/21/23 tablet,extended release 24 hr rosuvastatin 40 mg tablet 40 mg PO DAILY Improve Lipid 08/21/23 08/21/23 numbers Previous Rx's Medication Instructions Recorded chlorthalidone 25 mg tablet 25 mg PO DAILY for blood pressure 03/01/23 #90 tabs benazepril 40 mg tablet 40 mg PO DAILY #90 tabs 03/25/23 Allergies Allergy/AdvReac Type Severity Reaction Status Date / Time Penicillins Allergy Rash Verified 09/19/23 08:28 Patient History Medical History (Updated 09/19/23 @ 11:03 by Mery Waterman DO) Stenosis of left subclavian artery History of colonic polyps Seasonal affective disorder Asymptomatic PVCs Coronary artery calcification Primary osteoarthritis involving multiple joints Mixed hyperlipidemia Essential hypertension IFG (impaired fasting glucose) Peripheral neuropathy (~1999) Suspected COVID-19 virus infection (~10/2021) Arthritis Surgical History Anesthesia Hx of umbilical hernia repair (09/13/21) 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) Hx of cholecystectomy (04/2020) History of back surgery (~2013) Status post appendectomy (10/2013) Family History Father Cancer History of heart disease Mother Congestive heart failure Social History details: , children, retired research/academics household members: spouse Smoking Status: Former smoker alcohol intake: current Smoking Status: Former smoker alcohol intake frequency: a few times a week Substance Use Type: does not use Exam Initial Vital Signs Initial Vital Signs: Vital Signs Temperature 97.6 F 09/19/23 08:25 Pulse Rate 54 L 09/19/23 08:25 Respiratory Rate 16 09/19/23 08:25 Blood Pressure 132/78 09/19/23 08:25 Pulse Oximetry 96 09/19/23 08:25 Oxygen Delivery Method Room Air 09/19/23 08:25 GENERAL: Alert very pleasant 82-year-old male HEENT: Head atraumatic,EOMI, pupils reactive, face symmetric, [moist] mucous membranes CARDIOVASCULAR: Regular rate and rhythm without murmurs, rubs or gallops. RESPIRATORY: Breath sounds equal bilaterally, no wheezes rales or rhonchi. ABDOMEN: Soft, nontender. Normoactive bowel sounds all 4 quadrants. No guarding or rebound. EXTREMITIES: Normal range of motion, no clubbing or edema. Neurovascularly intact Pelvis stable Left lower extremity within normal limits Right lower extremity obvious open ankle fracture dislocation medially, strong distal pedal pulse able to move toes. Knee is nontender able to flex at the hip NEUROLOGICAL: Alert and oriented x4. SKIN: Warm, dry, no laceration, no petechiae, no rashes or lesions. Procedures Orthopedic Fracture Reduction Fracture #1: Time Out Performed: Yes Side: right Technique: direct manipulation and traction/counter-traction Post Reduction X-rays Demonstrate: anatomical reduction Post-reduction neuro exam: intact and no change Post-reduction vascular exam: intact Splint Applied: Yes Patient Tolerated Procedure: Well Additional Comments: Wound irrigated out with 250 cc normal saline. Open wound placed Xeroform cotton in 4 x 4 Orthopedic Splinting/Casting Injury #1: Lower Extremity Injury Location: ankle Lower Extremity Immobilizer: posterior splint and stirrup splint Post splinting neuro exam: intact and no change Post splinting vascular exam: no change Placed by: Provider Procedural Sedation Consent signed: Yes Time out performed: Yes Indication: fracture/dislocation reduction Mallampati Airway Classification: Class II Ketamine dose (mg): 200 ED Sedation Level: Moderate (Concious) Patient Tolerated Procedure: Well and No complications Complications: hypoventilation Interventions: Airway repositioned and Assist by BVM Course Orders Ordered: ED Orders 09/19/23 08:23 XR ankle LT 2V Stat 09/19/23 08:29 CBC Auto Diff [Complete Blood Count AUTO DIFF] Stat 09/19/23 08:41 EKG-12 Lead Stat 09/19/23 08:47 EKG-12 Lead Routine 09/19/23 09:10 CMP [Comprehensive Metabolic Panel] Stat 09/19/23 10:01 XR ankle RT 2V Stat 09/19/23 10:12 CT LE RT wo con Stat 09/19/23 10:34 XR hand LT min 3V Stat Discontinued Medications Sodium Chloride 9 ml/ (Epinephrine HCl 0.1 mg) 0 ml IV NOW ONE Stop: 09/19/23 09:23 Last Admin: 09/19/23 09:45 Dose: Not Given Documented By: ROSEY Hydromorphone HCl (Hydromorphone 1 Mg Inj) 1 mg IV NOW ONE Stop: 09/19/23 08:24 Last Admin: 09/19/23 08:36 Dose: 1 mg Documented By: CINTIA Hydromorphone HCl (Hydromorphone 0.5 Mg Inj) 0.5 mg IV NOW ONE Stop: 09/19/23 11:14 Last Admin: 09/19/23 11:15 Dose: 0.5 mg Documented By: ROSEY Cefazolin Sodium 1 gm/ Sodium (Chloride) 100 mls @ 200 mls/hr IV NOW ONE Stop: 09/19/23 08:53 Last Infusion: 09/19/23 09:11 Dose: Infused Documented By: Admin: 09/19/23 08:35 Dose: 200 mls/hr Documented By: CINTIA Ketamine HCl (Ketamine 500 Mg/5 Ml Inj) 200 mg IV NOW ONE Stop: 09/19/23 09:31 Last Admin: 09/19/23 09:40 Dose: 200 mg Documented By: ROSEY Propofol (Propofol 200 Mg/20 Ml Vial) 110 mg 1 mg/kg (110 mg) IV NOW ONE Stop: 09/19/23 09:00 Last Admin: 09/19/23 09:45 Dose: Not Given Documented By: ROSEY Vital Signs Vital signs: Vital Signs - 8 hr 09/19/23 08:25 09/19/23 08:40 09/19/23 08:49 Temperature 97.6 F Pulse Rate 54 L 63 Respiratory Rate 16 15 Blood Pressure 132/78 94/57 L Pulse Oximetry 96 94 Oxygen Delivery Method Room Air Room Air Oxygen Flow Rate 09/19/23 08:49 09/19/23 08:50 09/19/23 08:50 Temperature Pulse Rate 63 60 Respiratory Rate 17 Blood Pressure 93/54 L Pulse Oximetry 92 94 Oxygen Delivery Method Oxygen Flow Rate 09/19/23 08:55 09/19/23 08:55 09/19/23 09:00 Temperature Pulse Rate 62 Respiratory Rate 21 Blood Pressure 93/53 L 90/55 L Pulse Oximetry 93 Oxygen Delivery Method Oxygen Flow Rate 09/19/23 09:00 09/19/23 09:03 09/19/23 09:03 Temperature Pulse Rate 58 L 65 Respiratory Rate 16 20 Blood Pressure 99/73 Pulse Oximetry 93 94 Oxygen Delivery Method Oxygen Flow Rate 09/19/23 09:05 09/19/23 09:05 09/19/23 09:10 Temperature Pulse Rate 63 Respiratory Rate 26 H Blood Pressure 105/67 113/66 Pulse Oximetry 94 Oxygen Delivery Method Oxygen Flow Rate 09/19/23 09:10 09/19/23 09:13 09/19/23 09:13 Temperature Pulse Rate 64 61 Respiratory Rate 20 17 Blood Pressure 108/59 L Pulse Oximetry 94 94 Oxygen Delivery Method Oxygen Flow Rate 09/19/23 09:15 09/19/23 09:15 09/19/23 09:20 Temperature Pulse Rate 68 Respiratory Rate 16 Blood Pressure 93/61 87/60 L Pulse Oximetry 96 Oxygen Delivery Method Oxygen Flow Rate 09/19/23 09:20 09/19/23 09:25 09/19/23 09:25 Temperature Pulse Rate 66 60 Respiratory Rate 18 17 Blood Pressure 100/65 Pulse Oximetry 94 94 Oxygen Delivery Method Oxygen Flow Rate 09/19/23 09:30 09/19/23 09:30 09/19/23 09:35 Temperature Pulse Rate 62 Respiratory Rate 21 Blood Pressure 105/62 106/70 Pulse Oximetry 94 Oxygen Delivery Method Oxygen Flow Rate 09/19/23 09:35 09/19/23 09:40 09/19/23 09:40 Temperature Pulse Rate 60 62 Respiratory Rate 15 15 Blood Pressure 101/57 L Pulse Oximetry 95 95 Oxygen Delivery Method Oxygen Flow Rate 09/19/23 09:45 09/19/23 09:45 09/19/23 09:48 Temperature Pulse Rate 64 Respiratory Rate 26 H Blood Pressure 108/64 Pulse Oximetry 95 85 L Oxygen Delivery Method Room Air Ambu Bag Oxygen Flow Rate 15 09/19/23 09:51 09/19/23 09:51 09/19/23 09:55 Temperature Pulse Rate 80 Respiratory Rate 23 Blood Pressure 118/86 188/94 H Pulse Oximetry 95 Oxygen Delivery Method Oxygen Flow Rate 09/19/23 09:55 09/19/23 09:56 09/19/23 09:56 Temperature Pulse Rate 97 H 99 H Respiratory Rate 21 Blood Pressure 194/91 H Pulse Oximetry 96 99 Oxygen Delivery Method Nasal Cannula Oxygen Flow Rate 6 09/19/23 10:00 09/19/23 10:00 09/19/23 10:05 Temperature Pulse Rate 92 H 88 Respiratory Rate 27 H 19 Blood Pressure 176/87 H Pulse Oximetry 99 95 93 Oxygen Delivery Method Nasal Cannula Oxygen Flow Rate 09/19/23 10:05 09/19/23 10:10 09/19/23 10:10 Temperature Pulse Rate 77 Respiratory Rate 19 Blood Pressure 147/86 H 137/78 Pulse Oximetry 92 Oxygen Delivery Method Oxygen Flow Rate 09/19/23 10:15 09/19/23 10:15 09/19/23 10:20 Temperature Pulse Rate 73 Respiratory Rate 15 Blood Pressure 132/73 138/70 Pulse Oximetry 95 Oxygen Delivery Method Oxygen Flow Rate 09/19/23 10:20 09/19/23 10:20 09/19/23 10:25 Temperature Pulse Rate 72 67 Respiratory Rate 11 L 11 L Blood Pressure 132/76 Pulse Oximetry 98 Oxygen Delivery Method Oxygen Flow Rate 09/19/23 10:25 09/19/23 11:00 Temperature Pulse Rate 72 Respiratory Rate 19 Blood Pressure 132/76 Pulse Oximetry 97 Oxygen Delivery Method Oxygen Flow Rate MDM - Extremity Injury (Lower) Lab Data 09/19/23 08:29 09/19/23 09:10 Labs: Lab Results 09/19/23 09/19/23 Range/Units 08:29 09:10 WBC 7.2 (4.5-11.0) X10^3/uL RBC 4.59 (4.5-5.9) X10^6/uL Hgb 14.9 (13.5-17.5) g/dL Hct 44.2 (41-53) % MCV 96.3 (80-100) fL MCH 32.5 (26-34) PG MCHC 33.7 (30-36) % RDW 13.7 (11.6-14.8) % Plt Count 262 (150-400) X10^3/uL Neut % (Auto) 70.9 (50-75) % Lymph % (Auto) 16.2 L (25-40) % [place] % (Auto) 10.0 (3-14) % Eos % (Auto) 1.9 L (2-4) % Baso % (Auto) 1.0 (0-2) % Neut # (Auto) 5100 (0942-0382) /uL Lymph # (Auto) 1200 (9052-5802) /uL [place] # (Auto) 700 (0-900) /uL Eos # (Auto) 100 (0-450) /uL Baso # (Auto) 100 (0-100) /uL Sodium 138 (137-145) mmol/L Potassium 4.1 (3.4-5.1) mmol/L Chloride 107 (98-107) mmol/L Carbon Dioxide 23 (22-32) mmol/L BUN 27 H (9-20) mg/dL Creatinine 1.13 (0.66-1.25) mg/dL Estimated GFR > 60 (>60) mL/min BUN/Creatinine Ratio 23.9 H (6-22) Glucose 122 H (80-110) mg/dL Calcium 8.9 (8.4-10.2) mg/dL Total Bilirubin 0.7 (0.2-1.3) mg/dL AST 28 (17-59) IU/L ALT 23 (<50) IU/L Alkaline Phosphatase 64 (38-126) U/L Total Protein 7.1 (6.3-8.2) g/dL Albumin 4.1 (3.5-5.0) g/dL Globulin 3.0 (1.7-4.1) g/dL Albumin/Globulin Ratio 1.4 (1.0-2.8) Imaging Data Extremity x-ray #1: Radiologist's Impression: PROCEDURE: XR ANKLE LT 2V INDICATIONS: fracture/dislocation TECHNIQUE: 3 views of the ankle were acquired. COMPARISON: None. FINDINGS: Bones: Fracture dislocation at the ankle. Fractures include a distal fibular fracture above the syndesmosis which is quite displaced and a probable posterior malleolar fracture. No suspicious bony lesions. Soft tissues: No tibiotalar joint effusion. Achilles tendon appears normal. IMPRESSION: Fracture dislocation at the ankle. Dictated by: Dixon Mccollum M.D. on 09/19/2023 at 9:08 Extremity x-ray #2: Radiologist's Impression: PROCEDURE: XR ANKLE RT 2V INDICATIONS: POST REDUCTION RIGHT ANKLE TECHNIQUE: 3 views of the ankle were acquired. COMPARISON: [facility], , XR ANKLE RT 2V, 09/19/2023, 8:27. FINDINGS: Bones: Significant improvement in alignment. Oblique distal fibular fracture above the syndesmosis is now only minimally displaced. There is a suggestion of a possible posterior malleolar fracture. Splint material obscures bony detail. Soft tissues: No tibiotalar joint effusion. Achilles tendon appears normal. IMPRESSION: Significant interval improvement in alignment. Distal fibular fracture. Question posterior malleolar fracture. Dictated by: Dixon Mccollum M.D. on 09/19/2023 at 10:33 Approved by: Dixon Mccollum M.D. on 09/19/2023 at 10:34 Extremity x-ray #3: Radiologist's Impression: PROCEDURE: XR HAND LT MIN 3V INDICATIONS: swelling TECHNIQUE: 3 views of the hand(s) acquired. COMPARISON: None. FINDINGS: Bones: There is a small linear calcification at the base of the 2nd MCP joint.. Diffuse moderate to severe 1st CMC and IP degenerative narrowing most significant at the 3rd DIP joint and 1st CMC. Soft tissues: No suspicious soft tissue calcifications. IMPRESSION: Small calcification at the base of the 2nd MCP joint not well seen on all views. Small avulsion injury cannot be excluded. Dictated by: Amy Nelson M.D. on 09/19/2023 at 11:17 CT LE: Radiologist's Impression: PROCEDURE: CT LE RT WO CON INDICATIONS: fracture TECHNIQUE: Noncontrast 1-1.5 mm axial sections acquired from above the tibiotalar joint to the bottom of the calcaneus, with coronal and sagittal reformats. COMPARISON: [facility], , XR ANKLE RT 2V, 09/19/2023, 8:27. FINDINGS: Image quality: Excellent. Bones: Comminuted mildly displaced distal fibular fracture above the syndesmosis. Also present is a mildly displaced comminuted posterior malleolar fracture. There are tiny fracture fragments within the joint space. Additionally, there is a small medial avulsion off of the talus. There is also subtle fracture involving the anterior superior talus proximal to the talonavicular joint. Soft tissues: There is a medial skin laceration in close proximity to the medial malleolus. There is gas tracking along the subcutaneous tissues and also in the muscular compartments, traveling approximately. IMPRESSION: 1. Extensive fractures as described above. Findings include a comminuted distal shaft fracture of the fibula above the medial malleolus, a comminuted posterior malleolar fracture, an avulsion off of the medial talus, and an anterior superior talar fracture. There are associated bony fragments in the joint. 2. Skin laceration with development of air present tracking along the subcutaneous tissues and muscular compartments proximally. Comment: Careful follow-up to exclude developing compartment syndrome or necrotizing fasciitis is recommended. At this point, there is no significant edema in areas of the air. Dictated by: Dixon Mccollum M.D. on 09/19/2023 at 11:51 Approved by: Dixon Mccollum M.D. on 09/19/2023 at 12:14 ECG Data Attestation: I personally reviewed and interpreted this ECG as follows: Prior ECG tracings: available for review Interpretation: Sinus rhythm with PVC rate 66 ID interval 60 QRS 104 QTC 457 MDM Narrative Medical decision making narrative: Patient very nice 82-year-old male who fell about 4 steps off a ladder with an obvious medial right ankle open fracture dislocation. Neurovascularly intact. Patient was easily reduced with procedure sedation. Wound was irrigated out with 250 cc of saline unfortunately he required bagging and was not quite tolerating procedure sedation. No further irrigation was done. Xeroform 4x4s and splinting. Blood work has been reviewed no leukocytosis or anemia hemoglobin is 14.9 hematocrit is 44.2, electrolytes are stable BUN 27 creatinine 1.1 glucose 122 Imaging has been reviewed he had significant improvement after reduction. CT was done as well however final results and read of CT prior to transfer is still pending. 0900 Dr. Nix clinical documentation nurse orthopedic surgeon request patient be transferred to [facility] for higher level of care Dr. [place] F[place]ardo ED attending at [facility] updated patient's symptoms test results and kindly accepts Critical Care Time Critical Care Time Critical Care Time: Yes Total Critical Care Time: 40 Attestation: The high probability of a clinically significant, sudden or life threatening deterioration of the [cardiovascular] system(s) required my full and direct attention, intervention and personal management. The aggregate critical care time was 40 minutes. This time is in addition to time spent performing reported procedures but includes the following: [x] Data Review and interpretation [x] Patient assessment and monitoring of vital signs [x] Documentation [x] Medication orders and management Discharge Plan Departure Patient Disposition: [facility] Clinical Impression: Open fracture dislocation of right ankle Prescriptions: No Action chlorthalidone 25 mg tablet 25 mg PO DAILY Qty: 90 3RF benazepril 40 mg tablet 40 mg PO DAILY Qty: 90 3RF rosuvastatin 40 mg tablet 40 mg PO DAILY metoprolol succinate 25 mg tablet extended release 24 hr 25 mg PO DAILY meloxicam 15 mg tablet 15 mg PO DAILY PRN Referrals: Ritesh Oleary MD [Primary Care Provider] -
[2023-09-19 09:33] LABS: Alanine Aminotransferase 23 IU/L (<50); Albumin 4.1 g/dL (3.5-5.0); Albumin Globulin Ratio 1.4 (1.0-2.8); Alkaline Phosphatase 64 U/L (38-126); Aspartate Aminotransferase 28 IU/L (17-59); BUN Creatinine Ratio 23.9 (6-22); Bilirubin Total 0.7 mg/dL (0.2-1.3); Blood Urea Nitrogen 27 mg/dL (9-20); Calcium 8.9 mg/dL (8.4-10.2); Carbon Dioxide 23 mmol/L (22-32); Chloride 107 mmol/L (98-107); Estimated Glomerular Filt Rate > 60 mL/min (>60); Glucose 122 mg/dL (80-110); HEMOLYSIS < 15 (0-50); Potassium 4.1 mmol/L (3.4-5.1); Sodium 138 mmol/L (137-145); Total Protein 7.1 g/dL (6.3-8.2)
[2023-09-19] MEDS: KETAMINE 500 MG/5 ML INJ 200 MG IV (09:40)
--- NOTE | 2023-09-19 10:01 | DI.RAD.S_ITS ---
PROCEDURE: XR ANKLE RT 2V INDICATIONS: POST REDUCTION RIGHT ANKLE TECHNIQUE: 3 views of the ankle were acquired. COMPARISON: [facility], CR, XR ANKLE RT 2V, 09/19/2023, 8:27. FINDINGS: Bones: Significant improvement in alignment. Oblique distal fibular fracture above the syndesmosis is now only minimally displaced. There is a suggestion of a possible posterior malleolar fracture. Splint material obscures bony detail. Soft tissues: No tibiotalar joint effusion. Achilles tendon appears normal. IMPRESSION: Significant interval improvement in alignment. Distal fibular fracture. Question posterior malleolar fracture. Dictated by: Dixon Mccollum M.D. on 09/19/2023 at 10:33 Approved by: Dixon Mccollum M.D. on 09/19/2023 at 10:34
--- NOTE | 2023-09-19 10:12 | DI.CT.S_ITS ---
PROCEDURE: CT LE RT WO CON INDICATIONS: fracture TECHNIQUE: Noncontrast 1-1.5 mm axial sections acquired from above the tibiotalar joint to the bottom of the calcaneus, with coronal and sagittal reformats. COMPARISON: [facility], CR, XR ANKLE RT 2V, 09/19/2023, 8:27. FINDINGS: Image quality: Excellent. Bones: Comminuted mildly displaced distal fibular fracture above the syndesmosis. Also present is a mildly displaced comminuted posterior malleolar fracture. There are tiny fracture fragments within the joint space. Additionally, there is a small medial avulsion off of the talus. There is also subtle fracture involving the anterior superior talus proximal to the talonavicular joint. Soft tissues: There is a medial skin laceration in close proximity to the medial malleolus. There is gas tracking along the subcutaneous tissues and also in the muscular compartments, traveling approximately. IMPRESSION: 1. Extensive fractures as described above. Findings include a comminuted distal shaft fracture of the fibula above the medial malleolus, a comminuted posterior malleolar fracture, an avulsion off of the medial talus, and an anterior superior talar fracture. There are associated bony fragments in the joint. 2. Skin laceration with development of air present tracking along the subcutaneous tissues and muscular compartments proximally. Comment: Careful follow-up to exclude developing compartment syndrome or necrotizing fasciitis is recommended. At this point, there is no significant edema in areas of the air. Dictated by: Dixon Mccollum M.D. on 09/19/2023 at 11:51 Approved by: Dixon Mccollum M.D. on 09/19/2023 at 12:14
--- NOTE | 2023-09-19 10:17 | PC.NURSE ---
TIme out called at [address] Waterman and 200mg IV Ketamine pushed. RT at bedside. 0948 pt became apneic w/o2 sat 85% and dyspneic w/6 RR/min. RT performed jaw thrust and attempted OPA. Pt gagged and spit OPA out. RT began to BVM at 15L for continued apnea and dyspnea. 2nd RN called to bedside to assist RT with jaw thrust and BVM. 1000 pt maintaining o2 sat above 92% on RA but still requiring jaw thrust by RT. 1005 pt continues to require jaw thrust and o2 sat remains greater that 92%. 1015 pt sleepy but arousable. 1020 Pt awake and able to answer questions appropriately. VS WNL at this time.
--- NOTE | 2023-09-19 10:34 | DI.RAD.S_ITS ---
PROCEDURE: XR HAND LT MIN 3V INDICATIONS: swelling TECHNIQUE: 3 views of the hand(s) acquired. COMPARISON: None. FINDINGS: Bones: There is a small linear calcification at the base of the 2nd MCP joint.. Diffuse moderate to severe 1st CMC and IP degenerative narrowing most significant at the 3rd DIP joint and 1st CMC. Soft tissues: No suspicious soft tissue calcifications. IMPRESSION: Small calcification at the base of the 2nd MCP joint not well seen on all views. Small avulsion injury cannot be excluded. Dictated by: Amy Nelson M.D. on 09/19/2023 at 11:17 Approved by: Amy Nelson M.D. on 09/19/2023 at 11:18
--- NOTE | 2023-09-19 11:02 | PC.NURSE ---
0967 Pt came to ED today via EMS after falling 4 steps from ladder. Pt has open fx on right ankle w/rotation. Pt denies hitting head or LOC. Denies neck pain or injury. Dr Waterman at bedside during triage. Pt a&ox4.
[2023-09-19] MEDS: HYDROMORPHONE 0.5 MG INJ IV (11:15)
== END 2023-09-19 11:20 | disposition short-term general hospital (02) ==
PROVIDERS: Emergency Provider Emergency Medicine; PCP Internal Medicine
DX: S93.04XA Dislocation of right ankle joint, initial encounter (principal); W11.XXXA Fall on and from ladder, initial encounter
CPT/HCPCS: 27788; 73130; 73600; 73700; 80053; 85025; 93005; 96365; 96375; 96376; 99152; 99153; 99285; 99291; J0171; J0690; J1170

== ENCOUNTER → 2024-01-06 06:56 | Outpatient (CLI) | payer MEDICARE, OTHER, SELFPAY ==
[2024-01-06 07:54] LABS: Alanine Aminotransferase 16 IU/L (<50); Albumin Globulin Ratio 1.3 (1.0-2.8); Alkaline Phosphatase 70 U/L (38-126); Aspartate Aminotransferase 24 IU/L (17-59); BUN Creatinine Ratio 21.3 (6-22); Bilirubin Total 0.6 mg/dL (0.2-1.3); Blood Urea Nitrogen 27 mg/dL (9-20); Calcium 9.3 mg/dL (8.4-10.2); Carbon Dioxide 25 mmol/L (22-32); Chloride 102 mmol/L (98-107); Cholesterol 122 mg/dL (140-199); Estimated Glomerular Filt Rate 57 mL/min (>60); Glucose 106 mg/dL (80-110); HDL Cholesterol 44 mg/dL (40-60); HEMOLYSIS < 15 (0-50); LDL Cholesterol Calculated 59 mg/dL (<100); Sodium 135 mmol/L (137-145); Triglycerides 94 mg/dL (35-150)
[2024-01-06 08:06] LABS: Potassium 4.5 mmol/L (3.4-5.1)
== END ==
PROVIDERS: PCP Internal Medicine; Referring Provider Nurse Practitioner; Visit Provider Nurse Practitioner
DX: I10 Essential (primary) hypertension (principal); E78.2 Mixed hyperlipidemia
CPT/HCPCS: 36415; 80053; 80061

== ENCOUNTER → 2024-08-27 07:00 | Outpatient (CLI) | payer MEDICARE, OTHER, SELFPAY ==
[2024-08-27 08:06] LABS: BUN Creatinine Ratio 21.6 (6-22); Blood Urea Nitrogen 24 mg/dL (9-20); Calcium 9.5 mg/dL (8.4-10.2); Chloride 101 mmol/L (98-107); Estimated Glomerular Filt Rate > 60 mL/min (>60); Glucose 105 mg/dL (70-99); HDL Cholesterol 44 mg/dL (40-60); HEMOLYSIS < 15 (0-50); Sodium 137 mmol/L (137-145)
[2024-08-27 08:13] LABS: Aspartate Aminotransferase 29 IU/L (17-59); Carbon Dioxide 27 mmol/L (22-32); Cholesterol 123 mg/dL (140-199); LDL Cholesterol Calculated 48 mg/dL (<100); Potassium 4.9 mmol/L (3.4-5.1); Triglycerides 153 mg/dL (35-150)
[2024-08-27 08:35] LABS: Prostate Specific Antigen 1.69 ng/mL (0.10-4.00)
[2024-08-28 13:36] LABS: Fecal Immunochemical Test Positive (Negative)
== END ==
PROVIDERS: PCP Internal Medicine; Referring Provider Internal Medicine; Visit Provider Internal Medicine
DX: I10 Essential (primary) hypertension (principal); N40.1 Benign prostatic hyperplasia with lower urinary tract symptoms; E78.2 Mixed hyperlipidemia; N13.8 Other obstructive and reflux uropathy; Z86.0100 Personal history of colon polyps, unspecified
CPT/HCPCS: 36415; 80048; 80061; 82274; 84153; 84450

== ENCOUNTER → 2024-09-22 07:57 | Outpatient (CLI) | payer MEDICARE, OTHER, SELFPAY | PROVIDERS: PCP Internal Medicine; Referring Provider Surgery; Visit Provider Surgery | DX: Z86.0100 Personal history of colon polyps, unspecified (principal) | CPT/HCPCS: 82274 ==